=== PATIENT | female | born 1960 | race Caucasian/White ===

== ENCOUNTER 2017-04-28 21:11 | Emergency (ER) | payer MEDICARE ==
[2017-04-28 22:25] LABS: ABS Basophils 0 10^3/ul (0-0.2); ABS Eosinophils 0.2 10^3/ul (0-0.6); ABS Lymphocytes 2.6 10^3/ul (1.0-4.8); ABS Monocytes 0.8 10^3/ul (0-0.8); ABS Neutrophils 4.3 10^3/ul (1.5-7.7); ABS Nucleated RBC 0 10^3/ul; Eosinophil % 2.1 % (0-6); Hematocrit 41 % (35-47); Hemoglobin 13.9 g/dl (12.0-16.0); Lymphocyte % 32.6 % (25-47); Mean Corpuscular HGB Conc 34 g/dl (31-36); Mean Corpuscular Hemoglobin 30 pg (27-31); Mean Corpuscular Volume 90 fL (80-97); Mean Platelet Volume 8.6 um3 (7.4-10.4); Nucleated Red Blood Cells % 0; Platelet Count 227 10^3/ul (150-450); Red Blood Count 4.58 10^6/ul (4.0-5.4); Red Cell Distribution Width 13 % (10.5-15)
[2017-04-28 22:31] LABS: INR 0.88 (0.77-1.02)
[2017-04-28 22:34] LABS: EGFR Non-African American 64.1 (>60)
[2017-04-28 23:22] VITALS: BP 124/69
--- NOTE | 2017-04-28 23:40 | ED ---
Sandy Jensen Rebecca, scribed for Katheryn Montiel MD on 04/28/17 at 2302 . HPI Chest Pain - HPI Summary HPI Summary: Pt is a 57 y/o F who presents to ED c/o intermittent CP for 2-3 weeks. Pain is located in the midsternal chest without radiation and has been gradually worsening since onset. Each episodes lasts about 15 minutes with the pain currently mild, ranked 3/10. Sx alleviated by ASA, which she took at home [employer], aggravated by nothing. Takes 81 mg ASA daily. PMHx CVA in 2005 and STEMI x2, last one on August 11, 2013 when she had 2 stents placed. Last stress test was about 1 year ago and she was planning on scheduling a new one soon. Saw her PCP today who advised a stress test with her prior authorization technician, Dr. Macias. - History of Current Complaint Chief Complaint: EDChestPainROMI Time Seen by Provider: 04/28/17 22:02 Hx Obtained From: Patient Onset/Duration: Started Weeks Ago - 2-3 weeks, Still Present Timing: Intermittent Current Severity: Mild Pain Intensity: 3 Pain Scale Used: 0-10 Numeric Chest Pain Location: Mid Sternal Chest Pain Radiates: No Aggravating Factor(s): Nothing Alleviating Factor(s): OTC Meds - ASA Associated Signs and Symptoms: Positive: Negative - Allergy/Home Medications Allergies/Adverse Reactions: Allergies Allergy/AdvReac Type Severity Reaction Status Date / Time MS Atorvastatin Allergy Unknown Verified 04/28/17 21:32 [From Lipitor] Reaction Details MS Clopidogrel [From Plavix] Allergy Unknown Verified 04/28/17 21:32 Reaction Details MS Ezetimibe [From Vytorin] Allergy Unknown Verified 04/28/17 21:32 Reaction Details MS Iodinated Contrast Media Allergy Hives/Diff. Verified 04/28/17 21:32 [IV CONTRAST DYE] Breathing/I tching MS Latex [Latex] Allergy RASH IF Verified 04/28/17 21:32 TAPE LEFT ON FOR LONG PERIOD OF TIME MS Levetiracetam Allergy Unknown Verified 04/28/17 21:32 [From Keppra] Reaction Details MS Metoprolol Allergy Unknown Verified 04/28/17 21:32 [From Toprol XL] Reaction Details MS Niacin [From Niaspan] Allergy Unknown Verified 04/28/17 21:32 Reaction Details MS Nitroglycerin Allergy Unknown Verified 04/28/17 21:32 [Nitroglycerin] Reaction Details MS Oxcarbazepine Allergy Unknown Verified 04/28/17 21:32 [Oxcarbazepine] Reaction Details MS Phenytoin [From Dilantin] Allergy Unknown Verified 04/28/17 21:32 Reaction Details MS Rosuvastatin Allergy SEVERE Verified 04/28/17 21:32 [From Crestor] UPSET GI MS Simvastatin [From Vytorin] Allergy Unknown Verified 04/28/17 21:32 Reaction Details MS Ticagrelor [Ticagrelor] Allergy Airway Verified 04/28/17 21:32 Obstruction TAPE Allergy Severe Rash Uncoded 04/28/17 21:32 Home Medications: Home Medications Aspirin EC Low Dose* [Ecotrin EC Low Dose 81 MG*] 81 mg PO QAM 04/28/17 [ History Confirmed 04/28/17] Digoxin TAB* [Lanoxin TAB*] 0.25 mg PO DAILY@1700 04/28/17 [History Confirmed ] Ezetimibe TAB* [Zetia TAB*] 10 mg PO QAM 04/28/17 [History Confirmed 04/28/17] Fluvastatin (NF) [Lescol (NF)] 80 mg PO QPM 04/28/17 [History Confirmed 04/28/17 ] Lansoprazole CAP (NF) [Prevacid CAP (NF)] 30 mg PO QAM 04/28/17 [History Confirmed 04/28/17] Metoprolol Succinate XL TAB* [Toprol XL TAB*] 12.5 mg PO QAM 04/28/17 [History Confirmed 04/28/17] [place]-3 Fatty Acids/Fish Oil [[place] 3] 1 cap PO QAM 04/28/17 [History Confirmed 04/28/17] Ranolazine (NF) [Ranexa (NF)] 500 mg PO BID 04/28/17 [History Confirmed 04/28/17 ] Topiramate TAB(*) [Topamax 100 mg tab] 100 mg PO BID 04/28/17 [History Confirmed 04/28/17] Topiramate TAB(*) [Topamax 25 MG tab] 50 mg PO QPM 04/28/17 [History Confirmed 04/28/17] Ubidecarenone [Coq10] 100 mg PO QAM 04/28/17 [History Confirmed 04/28/17] PMH/Surg Hx/FS Hx/Imm Hx Endocrine/Hematology History: Denies: Hx Diabetes, Hx Thyroid Disease Cardiovascular History: Reports: Hx Angina, Hx Coronary Artery Disease, Hx Hypercholesterolemia, Hx Hypotension, Hx Myocardial Infarction, Other Cardiovascular Problems/Disorders - STATES EXTRA BEAT Denies: Hx Hypertension Respiratory History: Denies: Hx Asthma, Hx Chronic Obstructive Pulmonary Disease (COPD) GI History: Reports: Hx Gastroesophageal Reflux Disease - HX OF - NO PROBLEMS AT PRESENT, Other GI Disorders - CONTROL WITH PREVACID Denies: Hx Ulcer Musculoskeletal History: Reports: Hx Arthritis - SHOULDER Sensory History: Reports: Hx Contacts or Glasses - GLASSES, Hx Vision Problem, Hx Hearing Problem - [facility] R ear Denies: Hx Hearing Aid - [facility] RT EAR Opthamlomology History: Reports: Hx Contacts or Glasses - GLASSES, Hx Vision Problem Neurological History: Reports: Hx Headaches - OFF AND ON - TREATS WITH TYLENOL, Hx Seizures - SINCE STROKE LAST 07/2011, Other Neuro Impairments/Disorders - short term memory loss Psychiatric History: Reports: Hx Anxiety - r/t TOPIMAX - Cancer History Hx Radiation Therapy: No - Surgical History Surgery Procedure, Year, and Place: 1975 HERNIA [facility]. 1977 C SECTION [facility]. 1978 C SECTION [facility]. 1981 C SECTION [facility]. 1983 C SECTION [facility]. 2005 2 CARDIAC STENTS [employer]LINE [employer]. 2012 LEFT CARPAL TUNNEL RELEASE, [facility]. 2013-RIGHT CARPAL TUNNEL RELEASE-[facility]. 2013 - Finger surgery (trigger finger) Hx Anesthesia Reactions: No - Immunization History Immunizations Up to Date: Yes Infectious Disease History: No Infectious Disease History: Denies: Hx Hepatitis, Hx Human Immunodeficiency Virus (HIV), Traveled Outside the [place] in Last 30 Days - Family History Known Family History: Positive: Cardiac Disease Negative: Diabetes - Social History Alcohol Use: None Substance Use Type: Reports: None Smoking Status (MU): Former Smoker Type: Cigarettes Amount Used/How Often: 1 PPD X 32 YEARS Review of Systems Negative: Fever Positive: Chest Pain All Other Systems Reviewed And Are Negative: Yes Physical Exam - Summary Physical Exam Summary: VITAL SIGNS: Reviewed. GENERAL: ~Patient is a well-developed and nourished female who is lying comfortable in the stretcher. Patient is not in any acute respiratory distress. HEAD AND FACE: No signs of trauma. No ecchymosis, hematomas or skull depressions. No sinus tenderness. EYES: PERRLA, EOMI x 2, No injected conjunctiva, no nystagmus. EARS: Hearing grossly intact. Ear canals and tympanic membranes are within normal limits. MOUTH: Oropharynx within normal limits. NECK: Supple, trachea is midline, no adenopathy, no JVD, no carotid bruit, no c- spine tenderness, neck with full ROM. CHEST: Symmetric with mild left chest wall tenderness to palpation. LUNGS: Clear to auscultation bilaterally. No wheezing or crackles. CVS: Regular rate and rhythm, S1 and S2 present, no murmurs or gallops appreciated. ABDOMEN: Soft, non-tender. No signs of distention. No rebound no guarding, and no masses palpated. Bowel sounds are normal. EXTREMITIES: FROM in all major joints, no edema, no cyanosis or clubbing. NEURO: Alert and oriented x 3. No acute neurological deficits. Speech is normal and follows commands. SKIN: Dry and warm Triage Information Reviewed: Yes Vital Signs On Initial Exam: Initial Vitals Temp Pulse Resp BP Pulse Ox 97.8 F 67 16 136/86 99 04/28/17 21:12 04/28/17 21:12 04/28/17 21:12 04/28/17 21:12 04/28/17 21:12 Vital Signs Reviewed: Yes Diagnostics - Vital Signs Vital Signs Temp Pulse Resp BP Pulse Ox 04/28/17 22:01 120/76 04/28/17 22:00 60 98 04/28/17 21:40 60 97 04/28/17 21:12 97.8 F 67 16 136/86 99 - Laboratory Lab Results: Lab Results 04/28/17 04/28/17 04/28/17 Range/Units 22:00 22:00 22:00 WBC 8.0 (3.5-10.8) 10^3/ul RBC 4.58 (4.0-5.4) 10^6/ul Hgb 13.9 (12.0-16.0) g/dl Hct 41 (35-47) % MCV 90 (80-97) fL MCH 30 (27-31) pg MCHC 34 (31-36) g/dl RDW 13 (10.5-15) % Plt Count 227 (150-450) 10^3/ul MPV 8.6 (7.4-10.4) um3 Neut % (Auto) 54.4 (38-83) % Lymph % (Auto) 32.6 (25-47) % [place] % (Auto) 10.5 H (0-7) % Eos % (Auto) 2.1 (0-6) % Baso % (Auto) 0.4 (0-2) % Absolute Neuts (auto) 4.3 (1.5-7.7) 10^3/ul Absolute Lymphs (auto) 2.6 (1.0-4.8) 10^3/ul Absolute Monos (auto) 0.8 (0-0.8) 10^3/ul Absolute Eos (auto) 0.2 (0-0.6) 10^3/ul Absolute Basos (auto) 0 (0-0.2) 10^3/ul Absolute Nucleated RBC 0 10^3/ul Nucleated RBC % 0 INR (Anticoag Therapy) 0.88 (0.77-1.02) APTT 28.0 (26.0-36.3) seconds Sodium 139 (133-145) mmol/L Potassium 3.7 (3.5-5.0) mmol/L Chloride 108 (101-111) mmol/L Carbon Dioxide 24 (22-32) mmol/L Anion Gap 7 (2-11) mmol/L BUN 12 (6-24) mg/dL Creatinine 0.90 (0.51-0.95) mg/dL Est GFR ( Amer) 82.4 (>60) Est GFR (Non-Af Amer) 64.1 (>60) BUN/Creatinine Ratio 13.3 (8-20) Glucose 130 H (70-100) mg/dL Lactic Acid (0.5-2.0) mmol/L Calcium 9.1 (8.6-10.3) mg/dL Magnesium 2.1 (1.9-2.7) mg/dL Total Bilirubin 0.30 (0.2-1.0) mg/dL AST 14 (13-39) U/L ALT 17 (7-52) U/L Alkaline Phosphatase 58 (34-104) U/L Troponin I 0.00 (<0.04) ng/mL Total Protein 6.7 (6.4-8.9) g/dL Albumin 4.0 (3.2-5.2) g/dL Globulin 2.7 (2-4) g/dL Albumin/Globulin Ratio 1.5 (1-3) 04/28/17 Range/Units 22:00 WBC (3.5-10.8) 10^3/ul RBC (4.0-5.4) 10^6/ul Hgb (12.0-16.0) g/dl Hct (35-47) % MCV (80-97) fL MCH (27-31) pg MCHC (31-36) g/dl RDW (10.5-15) % Plt Count (150-450) 10^3/ul MPV (7.4-10.4) um3 Neut % (Auto) (38-83) % Lymph % (Auto) (25-47) % [place] % (Auto) (0-7) % Eos % (Auto) (0-6) % Baso % (Auto) (0-2) % Absolute Neuts (auto) (1.5-7.7) 10^3/ul Absolute Lymphs (auto) (1.0-4.8) 10^3/ul Absolute Monos (auto) (0-0.8) 10^3/ul Absolute Eos (auto) (0-0.6) 10^3/ul Absolute Basos (auto) (0-0.2) 10^3/ul Absolute Nucleated RBC 10^3/ul Nucleated RBC % INR (Anticoag Therapy) (0.77-1.02) APTT (26.0-36.3) seconds Sodium (133-145) mmol/L Potassium (3.5-5.0) mmol/L Chloride (101-111) mmol/L Carbon Dioxide (22-32) mmol/L Anion Gap (2-11) mmol/L BUN (6-24) mg/dL Creatinine (0.51-0.95) mg/dL Est GFR ( Amer) (>60) Est GFR (Non-Af Amer) (>60) BUN/Creatinine Ratio (8-20) Glucose (70-100) mg/dL Lactic Acid 1.2 (0.5-2.0) mmol/L Calcium (8.6-10.3) mg/dL Magnesium (1.9-2.7) mg/dL Total Bilirubin (0.2-1.0) mg/dL AST (13-39) U/L ALT (7-52) U/L Alkaline Phosphatase (34-104) U/L Troponin I (<0.04) ng/mL Total Protein (6.4-8.9) g/dL Albumin (3.2-5.2) g/dL Globulin (2-4) g/dL Albumin/Globulin Ratio (1-3) Result Diagrams: 04/28/17 22:00 04/28/17 22:00 Lab Statement: Any lab studies that have been ordered have been reviewed, and results considered in the medical decision making process. - Radiology CXR Xray Interpretation: No Acute Changes - No acute process. Pending official report. Radiology Interpretation Completed By: ED Physician - EKG 2115 Cardiac Rate: Bradycardia - 59 bpm EKG Rhythm: Sinus Bradycardia EKG Interpretation: Subtle ST depression in the inferior lead, unchanged from before EKG Comparison: No Significant Change - Subtle ST depression in the inferior lead, unchanged from before Chest Pain Course/Dx - Course Assessment/Plan: Pt is a 57 y/o F who presents to ED c/o intermittent CP for 2- 3 weeks. Pain is located in the midsternal chest without radiation and has been gradually worsening since onset. Each episodes lasts about 15 minutes with the pain currently mild, ranked 3/10. Sx alleviated by ASA, which she took at home [employer]. Takes 81 mg ASA daily. PMHx CVA in 2005 and STEMI x2, last one on August 11, 2013 when she had 2 stents placed. Last stress test was about 1 year ago and she was planning on scheduling a new one soon. Saw her PCP today who advised a stress test with her prior authorization technician, Dr. Macias. CXR reveals no acute process. EKG shows subtle ST depressions in the inferior leads, unchanged from prior EKG. Troponin of 0.00. Pt will be D/C to home with Dx of atypical chest pain with a recommended followup with her PCP and prior authorization technician. She understands and agrees. Allergies noted. - Diagnoses Provider Diagnoses: Atypical chest pain Discharge - Sign-Out/Discharge Documenting (check all that apply): Discharge - Discharge Plan Condition: Stable Disposition: HOME Patient Education Materials: Chest Pain (ED) Referrals: López Matt MD [Primary Care Provider] - 3 Days Additional Instructions: Follow up with your prior authorization technician. RETURN TO EMERGENCY DEPARTMENT FOR ANY NEW OR WORSENING SYMPTOMS The documentation as recorded by the Sandy mancuso Rebecca accurately reflects the service I personally performed and the decisions made by me, Katheryn Montiel MD.
--- NOTE | 2017-04-29 07:10 | RAD ---
INDICATION: Chest pain. COMPARISON: Comparison is made with a prior study from December 29, 2013. TECHNIQUE: A portable view of the chest was obtained. FINDINGS: Cardiac and mediastinal contours appear to be within normal limits. The lungs are clear. No pleural effusion is seen. IMPRESSION: NO EVIDENCE FOR ACUTE DISEASE.
== END 2017-04-28 23:33 | disposition home or self-care (01) ==
LOC: ED 21:11
DX: R07.89 Other chest pain (principal); R00.1 Bradycardia, unspecified; I25.119 Atherosclerotic heart disease of native coronary artery with unspecified angina pectoris; E78.00 Pure hypercholesterolemia, unspecified; Z79.82 Long term (current) use of aspirin; I95.9 Hypotension, unspecified; I25.2 Old myocardial infarction; K21.9 Gastro-esophageal reflux disease without esophagitis; F41.9 Anxiety disorder, unspecified; Z91.041 Radiographic dye allergy status; Z91.040 Latex allergy status; Z88.8 Allergy status to other drugs, medicaments and biological substances; Z91.048 Other nonmedicinal substance allergy status; Z87.891 Personal history of nicotine dependence
CPT/HCPCS: 36415; 71045; 80053; 83605; 83735; 84484; 85025; 85610; 85730; 93005; 99284

== ENCOUNTER 2018-02-12 11:13 | Emergency (ER) | payer MEDICARE ==
--- OUTSIDE RECORDS SUMMARY | 2018-02-12 11:19 | XMS REPORT | Continuity of Care Document ---
:1960 External Reference #:[id number] Author Name Maya Lester Care Team Providers Name Role Phone López Matt MD Primary Care Physician Unavailable Payers Type Date Identification Numbers Payment Provider Subscriber Effective: 2013 Policy Number: [id number] Medicare Blue Ppo Ludy Benedict Group Number: [id number] [address] [address] PayID: [id number] BL[place] [address] Effective: 2012 Policy Number: [id number] Medicare Blue o Ludy Benedict Expires: 2013 PayID: [id number] [address] [address] [place] [address] Effective: 2011 Policy Number: [id number] Medicare Blue [place] Ludy Benedict Expires: 2012 PayID: [id number] [address] [address] [place] [id number] Advance Directives Description No Information Available Problems Date Description Provider Status Onset: 03/10/2013 Coronary arteriosclerosis Heather Macias M.D. Active Onset: 03/10/2013 Mixed hyperlipidemia Heather Macias M.D. Active Onset: 04/27/2014 Carotid artery occlusion Heather Macias M.D. Active Onset: 08/07/2014 Old myocardial infarction Heather Macias M.D. Active Onset: 03/22/2015 Premature beats Heather Macias M.D. Active Onset: 07/23/2015 Atherosclerotic heart disease of samish Heather Macias M.D. Active coronary artery with unspecified angina pectoris Family History Date Family Member(s) Problem(s) Comments General Diabetes General Heart Disease General Cancer Mother Coronary Artery Disease (CAD) CT in 70s, Maternal Grandfather Coronary Artery Disease (CAD) multiple CT's, 95 yo Maternal Grandmother Coronary Artery Disease (CAD) Multiple CT's Social History Type Date Description Comments Sex Unknown Marital Status Single Lives With Boyfriend Occupation Disabled Tobacco Use Start: Unknown End: Former Cigarette Smoker Quit 2005 Unknown ETOH Use Denies alcohol use Recreational Drug Use Denies Drug Use Tobacco Use Start: Unknown End: Patient is a former Quit 2005 Unknown smoker Tobacco Use Start: Unknown End: former Cigarette smoker Unknown Smoking Status Reviewed: 01/18/18 former Cigarette smoker Exercise Type/Frequency Exercises regularly 3-4 times a week about half hour Allergies, Adverse Reactions, Alerts Date Description Reaction Status Severity Comments 03/10/2013 Crestor GERD Active 03/10/2013 Nitroglycerin low BP, itching Active 03/10/2013 Latex rash/hives Active 03/10/2013 Dye For Heart Catheterization Active 03/10/2013 Toprol XL fatigue/ OLIVO Active 03/10/2013 Niaspan GI Active 03/10/2013 Oxcarbazepine seizures Active 03/10/2013 Keppra headaches Active 03/10/2013 Dilantin rash Active 03/10/2013 Plavix headache Active 03/10/2013 Vytorin myalgias Active 03/10/2013 Lipitor myalgias Active 08/07/2014 Aspartame Active cognative 08/07/2014 Lactose (Intolerance) Active reflux/CP 02/02/2013 NKDA Inactive 03/10/2013 Benadryl Inactive Medications Medication Date Status Form Strength Qnty SIG Indications Ordering Provider Topiramate 07/16 Active Tablets 100mg 270ta 1 po qam and G40.209 Venkatesh S. /2018 bs 2 [facility] Yolanda Bonilla Lescol XL 12/01 Active Tablets ER 80mg 90tab 1 tab daily Heather 24HR s at bedtime Yolanda Macias Digoxin 02/13 Active Tablets 250mcg 90tab 1 by mouth s everyday Yolanda Macias Metoprolol 09/04 Active Tablets ER 25mg 90tab /2 tab by I21.4 Heather Succinate /2013 24HR s mouth every Easley, day M.DJayne Aspirin Active Tablets 81mg 1 po qd Unknown [place] 3 Active Capsules 1000mg 100ca 1 po qd. ps Co-Enzyme Q10 Active Capsules 100mg po qd Lansoprazole Active Capsules DR 30mg 90cap 1 by mouth Unknown s every day Zetia Active Tablets 10mg 90tab 1 by mouth Heather s every day Yolanda Macias Potassium 06/11 Hx Tablets ER 20Meq 90tab 1 by mouth I49.3 Amarilis S. Chloride ER /2017 s every day Brant, - N.P. 08/05 Topiramate 04/09 Hx Tablets 50mg 90tab 100mg in the G40.209 Venkatesh S. /2015 s morning and Irene, - 150mg at M.D. 07/16 /2017 Sucralfate 11/17 Hx Suspension 1GM/10ML 1200m 10 mls qid Heather l with meals Gilberto, - and qhs M.D. 04/27 Ranexa 10/11 Hx Tablets ER 500mg 60tab 1 by mouth I20.8 Heather 12HR s once a day Gilberto, - in in the M.D. 06/11 Welchol 10/11 Hx Tablets 625mg 180ta 1 pill PO 272.2 Heather bs bid and Gilberto, - increase as M.D. 03/01 directed by /2014 md office. Brilinta 08/23 Hx Tablets 90mg 60tab 1 tab by 410.72 Heather s mouth twice Gilberto, - a day M.D. 08/07 Compression 08/23 Hx Misc 1unit Thigh high Heather Stockings s light to Easley, - moderate M.D. 11/08 compression. Dx: hypotension, headache, orthostatic dizzyness. Post CT and post CVA Plavix 08/14 Hx Tablets 75mg 30tab 1 by mouth 410.72 Chris D. /2013 s every day Brand, - M.D. 08/23 [place] 05/29 Hx Tablets 5-325mg 30tab 1-2 by mouth Yadira s q4-6 hour as Bola, - needed pain M.D. 08/22 [place] 06/22 Hx Tablets 5-325mg 30tab 1-2 po q4-6h Yadira s prn Rosalino Ann M.D. 02/23 Digoxin 06/01 Hx Tablets 0.25mg 90tab 1 po qd Rosalino Salazar M.D. 02/13 Topamax 04/29 Hx Tablets 100mg 180ta 1 by mouth Venkatesh Jayne /2012 libertad twice a day Rosalion Bonilla M.D. 06/10 Crestor 04/27 Hx Tablets 5mg 30tab take 02/09 s tablet by Gilberto - mouth twice M.DJayne 03/02 per /2013 Prevacid 03/[address] 15mg 90cap 2 po qd Rosalino Santos M.D. 05/29 Topamax 03/16 Hx Tablets 25mg 240ta 1 mg bid for bs 1 wk then 2 Irene, - bid for 1 wk M.DJayne 04/29 then 3 bid for 1 wk then 4 bid Lamotrigine 11/16 Hx Tablets 150mg 60tab 1 q evening Venkatesh Jayne Rosalino Santos M.D. 03/16 Lamotrigine Hx Tablets 100mg 120ta 1 po qam Venkatesh S Rosalino Elena M.D. 03/02 Digoxin Hx Solution 0.25mg/ml daily Unknown /0000 - 06/01 Ciprofloxacin Hx Tablets 500mg 1 po bid for Unknown HCL /0000 UTI - 10/09 Lescol Hx Capsules 80mg 90cap 1 tab daily Heather s at bedtime Rosalino Macias M.D. 12/01 Topiramate Hx Tablets 100mg 1 by mouth Unknown /0000 in the Am - and one by 07/21 mouth in the PM Ranexa Hx Tablets ER 500mg 1 by mouth Unknown /0000 12HR twice a day - 06/27 Medications Administered in Office Medication Date Status Form Strength Qnty SIG Indications Ordering Provider Inj, Administered Injection Cem S. Regadenoson, 018 Pereyra, DO 0.1 MG FACC Technetium TC Administered Injection Cem S. 99M 018 Pereyra, DO Tetrofosmin, FACC Per Unit Dose Up To 40 Millicuries Depomedrol Administered Injection Yadira 80MG [address] Technetium TC Administered Injection Heather 99M 013 Mariya Macias M.D. Per Unit Dose Up To 40 Millicuries Immunizations Description No Information Available Vital Signs Date Vital Result Comment 01/18/2018 10:34am Height 58.25 inches 4'10.25" Weight 122.00 lb Heart Rate 60 /min BP Systolic 100 mmHg BP Diastolic 78 mmHg BMI (Body Mass Index) 25.3 kg/m2 12/24/2017 2:01pm Height 58.25 inches 4'10.25" Weight 124.00 lb w/o shoes Heart Rate 62 /min reg BP Systolic Sitting 105 mmHg LA reg cuff BP Diastolic Sitting 55 mmHg LA reg cuff BP Systolic Standing 110 mmHg LA reg cuff BP Diastolic Standing 60 mmHg LA reg cuff Respiratory Rate 18 /min BMI (Body Mass Index) 25.7 kg/m2 08/05/2017 8:18am Height 58.25 inches 4'10.25" Weight 120.00 lb Heart Rate 60 /min BP Systolic Sitting 108 mmHg Lenora reg cuff BP Diastolic Sitting 58 mmHg Lenora reg cuff BP Systolic Standing 108 mmHg Lenora reg cuff BP Diastolic Standing 56 mmHg Lenora reg cuff Respiratory Rate 18 /min BMI (Body Mass Index) 24.9 kg/m2 07/16/2017 9:49am Height 58.25 inches '10.25" Weight 120.00 lb Heart Rate 62 /min BP Systolic Sitting 118 mmHg BP Diastolic Sitting 72 mmHg Respiratory Rate 16 /min BMI (Body Mass Index) 24.9 kg/m2 06/11/2017 11:12am Height 58.25 inches 4'10.25" Weight 124.00 lb BP Systolic Sitting 110 mmHg lue reg cuff BP Diastolic Sitting 48 mmHg lue reg cuff BP Systolic Standing 108 mmHg lue reg cuff BP Diastolic Standing 50 mmHg lue reg cuff Respiratory Rate 16 /min BMI (Body Mass Index) 25.7 kg/m2 Ejection Fraction 45-50% 09/06/2013 echo 12/08/2016 9:29am Height 58.25 inches 4'10.25" Weight 122.00 lb with shoes Heart Rate 50 /min BP Systolic Sitting 110 mmHg Lue reg cuff BP Diastolic Sitting 70 mmHg Lue reg cuff BP Systolic Standing 112 mmHg Lue reg cuff BP Diastolic Standing 72 mmHg Lue reg cuff Respiratory Rate 16 /min BMI (Body Mass Index) 25.3 kg/m2 Ejection Fraction 45-50% 09/06/2013-echo 07/15/2016 10:06am Height 58.25 inches 4'10.25" Weight 120.00 lb Heart Rate 68 /min BP Systolic Sitting 106 mmHg BP Diastolic Sitting 68 mmHg Respiratory Rate 14 /min BMI (Body Mass Index) 24.9 kg/m2 12/17/2015 3:35pm Height 58.25 inches 4'10.25" Weight 122.00 lb Heart Rate 56 /min BP Systolic Sitting 118 mmHg Ra reg cuff BP Diastolic Sitting 70 mmHg Ra reg cuff BP Systolic Standing 112 mmHg Ra BP Diastolic Standing 66 mmHg Ra Respiratory Rate 16 /min BMI (Body Mass Index) 25.3 kg/m2 Ejection Fraction 45-50% 09/06/13 09/27/2015 9:00am Height 58.25 inches 4'10.25" Weight 120.31 lb no shoes Heart Rate 58 /min BP Systolic Sitting 114 mmHg LA, reg cuff BP Diastolic Sitting 66 mmHg LA, reg cuff BP Systolic Standing 108 mmHg LA BP Diastolic Standing 62 mmHg LA Respiratory Rate 14 /min BMI (Body Mass Index) 24.9 kg/m2 Ejection Fraction 45-50% 09/06/13 08/27/2015 9:24am Height 58.25 inches 4'10.25" Weight 123.00 lb with shoes Heart Rate 54 /min BP Systolic Sitting 110 mmHg Ra reg cuff BP Diastolic Sitting 70 mmHg Ra reg cuff BP Systolic Standing 114 mmHg Ra reg cuff BP Diastolic Standing 80 mmHg Ra reg cuff BMI (Body Mass Index) 25.5 kg/m2 Ejection Fraction 45% - 50% echo 09/06/13 07/23/2015 8:48am Height 58.25 inches 4'10.25" Weight 121.00 lb with shoes Heart Rate 62 /min BP Systolic Sitting 98 mmHg LA reg cuff BP Diastolic Sitting 58 mmHg LA reg cuff BP Systolic Standing 96 mmHg LA reg cuff BP Diastolic Standing 56 mmHg LA reg cuff Respiratory Rate 14 /min BMI (Body Mass Index) 25.1 kg/m2 Ejection Fraction 45-50% 09/06/13 04/10/2015 9:46am Height 58.25 inches 4'10.25" Weight 117.00 lb Heart Rate 68 /min BP Systolic Sitting 116 mmHg BP Diastolic Sitting 68 mmHg Respiratory Rate 14 /min BMI (Body Mass Index) 24.2 kg/m2 03/22/2015 9:02am Height 58.25 inches 4'10.25" Weight 117.50 lb w/o shoes Heart Rate 48 /min BP Systolic Sitting 110 mmHg Lue, reg cuff BP Diastolic Sitting 84 mmHg Lue, reg cuff BP Systolic Standing 106 mmHg Lue BP Diastolic Standing 80 mmHg Lue Respiratory Rate 16 /min BMI (Body Mass Index) 24.3 kg/m2 Ejection Fraction 45-50% as of 09/06/13 echo 08/07/2014 9:29am Height 58.25 inches 4'10.25" Weight 111.00 lb w/o shoes Heart Rate 54 /min reg BP Systolic Sitting 104 mmHg Rue, reg cuff BP Diastolic Sitting 64 mmHg Rue, reg cuff BP Systolic Standing 100 mmHg Rue BP Diastolic Standing 60 mmHg Rue Respiratory Rate 18 /min BMI (Body Mass Index) 23.0 kg/m2 Ejection Fraction 45-50% as of 09/06/13 echo 05/02/2014 9:52am Height 58.25 inches 4'10.25" Heart Rate 56 /min BP Systolic Sitting 104 mmHg BP Diastolic Sitting 64 mmHg Respiratory Rate 16 /min 04/27/2014 9:25am Height 58.25 inches 4'10.25" Weight 118.00 lb no shoes Heart Rate 64 /min BP Systolic Sitting 108 mmHg LA, reg cuff BP Diastolic Sitting 60 mmHg LA, reg cuff BP Systolic Standing 112 mmHg LA BP Diastolic Standing 70 mmHg LA Respiratory Rate 18 /min BMI (Body Mass Index) 24.4 kg/m2 03/02/2014 9:24am Weight 121.00 lb no shoes Heart Rate 60 /min BP Systolic Sitting 108 mmHg LA, reg cuff BP Diastolic Sitting 72 mmHg LA, reg cuff BP Systolic Standing 102 mmHg LA BP Diastolic Standing 74 mmHg LA Respiratory Rate 14 /min 11/10/2013 2:23pm Weight 122.00 lb Heart Rate 60 /min BP Systolic Sitting 98 mmHg LA reg cuff BP Diastolic Sitting 64 mmHg LA reg cuff BP Systolic Standing 94 mmHg LA BP Diastolic Standing 64 mmHg LA Respiratory Rate 16 /min 10/11/2013 10:22am Weight 122.00 lb Heart Rate 62 /min BP Systolic Sitting 112 mmHg LA reg cuff BP Diastolic Sitting 68 mmHg LA reg cuff BP Systolic Standing 94 mmHg LA BP Diastolic Standing 64 mmHg LA Respiratory Rate 16 /min 09/08/2013 9:08am Height 58.5 inches 4'10.50" Weight 125.00 lb Heart Rate 64 /min BP Systolic Sitting 100 mmHg Ra reg cuff BP Diastolic Sitting 68 mmHg Ra reg cuff BP Systolic Standing 92 mmHg Ra BP Diastolic Standing 60 mmHg Ra Respiratory Rate 16 /min BMI (Body Mass Index) 25.7 kg/m2 08/23/2013 3:26pm Height 59 inches 4'11" Weight 125.00 lb with shoes Heart Rate 70 /min BP Systolic Sitting 90 mmHg Ra reg cuff BP Diastolic Sitting 60 mmHg Ra reg cuff BP Systolic Standing 86 mmHg Ra reg cuff BP Diastolic Standing 54 mmHg Ra reg cuff Respiratory Rate 16 /min BMI (Body Mass Index) 25.2 kg/m2 07/17/2013 9:30am Heart Rate 78 /min BP Systolic Sitting 124 mmHg BP Diastolic Sitting 80 mmHg 06/12/2013 9:17am Heart Rate 62 /min BP Systolic Sitting 120 mmHg BP Diastolic Sitting 74 mmHg 05/29/2013 9:13am Height 59 inches 4'11" Weight 125.00 lb BP Systolic Sitting 120 mmHg BP Diastolic Sitting 60 mmHg BMI (Body Mass Index) 25.2 kg/m2 04/19/2013 8:14am Heart Rate 80 /min BP Systolic Sitting 120 mmHg BP Diastolic Sitting 80 mmHg 03/10/2013 9:15am Height 58.5 inches 4'10.50" Weight 128.00 lb Heart Rate 60 /min BP Systolic Sitting 108 mmHg Ra reg cuff BP Diastolic Sitting 64 mmHg Ra reg cuff BP Systolic Standing 110 mmHg Ra BP Diastolic Standing 64 mmHg Ra Respiratory Rate 15 /min BMI (Body Mass Index) 26.3 kg/m2 03/16/2012 2:01pm Heart Rate 60 /min BP Systolic Sitting 136 mmHg BP Diastolic Sitting 68 mmHg Respiratory Rate 16 /min Results Test Date Facility Test Result H/L Range Note Lipid Profile 12/27/2017 [facility] Triglycerides 141 mg/dL 1 (Trig/Chol/HDL) [address] [place] [address] [phone] Cholesterol 161 mg/dL 2 HDL Cholesterol 41.2 mg/dL 3 LDL Cholesterol 92 mg/dL 4 Comp Metabolic Panel 12/27/2017 [facility] Sodium 142 mmol/L N 135-[address] [place] [address] [phone] Potassium 4.0 mmol/L N 3.5-5.0 Chloride 111 mmol/L N 101-111 Co2 Carbon Dioxide 25 mmol/L N 22-32 Anion Gap 6 mmol/L N 2-11 Glucose 139 mg/dL High 70-100 Blood Urea Nitrogen 13 mg/dL N 6-24 Creatinine 0.82 mg/dL N 0.51-0.95 BUN/Creatinine Ratio 15.9 N 8-20 Calcium 9.1 mg/dL N 8.6-10.3 Total Protein 6.4 g/dL N 6.4-8.9 Albumin 4.0 g/dL N 3.2-5.2 Globulin 2.4 g/dL N 2-4 Albumin/Globulin Ratio 1.7 N 1-3 Total Bilirubin 0.30 mg/dL N 0.2-1.0 Alkaline Phosphatase 68 U/L N 34-104 Alt 16 U/L N 7-52 Ast 14 U/L N 13-39 Egfr Non- 71.4 >60 Egfr 86.3 >60 5 Laboratory test 12/27/2017 [facility] Creatine 72 U/L N 10- [address] Kinase(CK) [place] [address] [phone] Digoxin 1.1 ng/ml N 0.8-2.0 Basic Metabolic Panel 08/19/2017 [facility] Sodium 141 mmol/L N 135-145 [address] [place] [address] [phone] Potassium 4.0 mmol/L N 3.5-5.0 Chloride 109 mmol/L N 101-111 Co2 Carbon Dioxide 24 mmol/L N 22-32 Anion Gap 8 mmol/L N 2-11 Glucose 130 mg/dL High 70-100 Blood Urea Nitrogen 8 mg/dL N 6-24 Creatinine 0.75 mg/dL N 0.51-0.95 BUN/Creatinine Ratio 10.7 N 8-20 Calcium 8.7 mg/dL N 8.6-10.3 Egfr Non- 79.1 >60 Egfr 95.7 >60 6 Laboratory test 08/19/2017 [facility] Magnesium 2.0 mg/dL N 1.9-2.7 finding [address] [place] [address] [phone] Digoxin 0.8 ng/ml N 0.8-2.0 Laboratory test finding 08/05/2017 [facility] Magnesium <pending > [address] [place] [address] [phone] Digoxin <pending> Basic Metabolic Panel 06/28/2017 [facility] Sodium 140 mmol/L N 139-145 [address] [place] [address] [phone] Potassium 4.2 mmol/L N 3.5-5.0 Chloride 107 mmol/L N 101-111 Co2 Carbon Dioxide 26 mmol/L N 22-32 Anion Gap 7 mmol/L N 2-11 Glucose 137 mg/dL High 70-100 Blood Urea Nitrogen 11 mg/dL N 6-24 Creatinine 0.78 mg/dL N 0.51-0.95 BUN/Creatinine Ratio 14.1 N 8-20 Calcium 9.2 mg/dL N 8.6-10.3 Egfr Non- 75.6 >60 Egfr 97.2 >60 7 Laboratory test 06/28/2017 [facility] Magnesium 2.1 mg/dL N 1.9-2.7 finding [address] [place] [address] [phone] Laboratory test 06/11/2017 [facility] Magnesium <pending> finding [address] [place] [address] [phone] Lipid Profile 12/07/2016 [facility] Triglycerides 158 mg/dL N 8 (Trig/Chol/HDL) [address] [place] [address] [phone] Cholesterol 147 mg/dL N 9 HDL Cholesterol 43.3 mg/dL N 10 LDL Cholesterol 72 mg/dL N 11 Laboratory test 12/07/2016 [facility] Apolipoprotein B 77 mg/dL N 12 finding [address] [place] [address] [phone] Lipoprotein 12/07/2016 [facility] Lipoprotein 97 mg/dL Abnormal <=3 13 Profile/[address] Profile Apo a 0 Lp([place]) [place] [address] [phone] CBC Auto Diff 07/13/2016 [facility] White Blood Count 7.5 N 3.[address] 10^3/uL -10 [place] [address] .8 [phone] Red Blood Count 4.59 10^6/uL N 4.0-5.4 Hemoglobin 13.8 g/dL N 12.0-16.0 Hematocrit 41 % N 35-47 Mean Corpuscular Volume 90 fL N 80-97 Mean Corpuscular Hemoglobin 30 pg N 27-31 Mean Corpuscular HGB Conc 33 g/dL N 31-36 Red Cell Distribution Width 13 % N 10.5-15 Platelet Count 202 10^3/uL N 150-450 Mean Platelet Volume 10 um3 N 7.4-10.4 Abs Neutrophils 4.4 10^3/uL N 1.5-7.7 Abs Lymphocytes 2.3 10^3/uL N 1.0-4.8 Abs Monocytes 0.6 10^3/uL N 0-0.8 Abs Eosinophils 0.2 10^3/uL N 0-0.6 Abs Basophils 0.1 10^3/uL N 0-0.2 Abs Nucleated RBC 0 10^3/uL N Granulocyte % 57.9 % N 38-83 Lymphocyte % 31.1 % N 25-47 Monocyte % 8.1 % N 1-9 Eosinophil % 2.1 % N 0-6 Basophil % 0.8 % N 0-2 Nucleated Red Blood Cells % 0 N Basic Metabolic Panel 07/13/2016 [facility] Sodium 140 mmol/L N 133-[address] [place] [address] [phone] Potassium 4.2 mmol/L N 3.5-5.0 Chloride 111 mmol/L N 101-111 Co2 Carbon Dioxide 24 mmol/L N 22-32 Anion Gap 5 mmol/L N 2-11 Glucose 121 mg/dL High 70-100 Blood Urea Nitrogen 13 mg/dL N 6-24 Creatinine 0.88 mg/dL N 0.51-0.95 BUN/Creatinine Ratio 14.8 N 8-20 Calcium 8.7 mg/dL N 8.6-10.3 Egfr Non- 66.0 N >60 Egfr 84.9 N >60 14 Lipid Profile 07/13/2016 [facility] Triglycerides 139 mg/dL N 15 (Trig/Chol/HDL) [address] [place] [address] [phone] Cholesterol 135 mg/dL N 16 HDL Cholesterol 32.8 mg/dL N 17 LDL Cholesterol 74 mg/dL N 18 Liver Function 07/13/2016 [facility] Total Protein 6.0 g/dL Low 6.4-8.[address] [place] [address] [phone] Albumin 3.9 g/dL N 3.2-5.2 Globulin 2.1 g/dL N 2-4 Albumin/Globulin Ratio 1.9 N 1-3 Total Bilirubin 0.60 mg/dL N 0.2-1.0 Direct Bilirubin 0.10 mg/dL N 0.03-0.18 Indirect Bilirubin 0.5 mg/dL N 0.3-1.0 Alkaline Phosphatase 52 U/L N 34-104 Alt 12 U/L N 7-52 Ast 12 U/L Low 13-39 Laboratory test finding 07/02/2015 [facility] Ast (Sgot) 13 U/L N 13-39 [place] [address] [phone] CRP High Sensitivity 1.00 mg/L N 19 Creatine Kinase(CK) 52 U/L N 10-223 Lipoprotein 07/02/2015 [facility] Lipoprotein 88 mg/dL Abnormal <=30 20 Profile/[place] Profile Apo a [place]p([place]) [place] [address] [phone] Lipid Profile 07/02/2015 [facility] Triglycerides [address] 21 (Trig/Chol/HDL) DRIVE mg/[place] [address] [phone] Cholesterol 142 mg/dL N 22 HDL Cholesterol 37.7 mg/dL N 23 LDL Cholesterol 71 mg/dL N 24 Laboratory 07/02/2015 [facility] Digoxin 1.4 ng/ml N 0.8-2.0 [address] [place] [address] [phone] Laboratory 07/02/2015 [facility] Digoxin 1.4 ng/ml N 0.8-2.[address] [place] [address] [phone] Lipoprotein 07/02/2015 [facility] Lipoprotein 88 mg/dL Abnormal <=30 27 Profile/[place] [address] Profile Apo a [place]p([place]) [place] [address] [phone] Laboratory 04/30/2014 [facility] LDL 194 mg/dL N 28 test finding 101 [facility] [place] [address] Direct [phone] Urinalysis 08/29/2013 [facility] Urine Color Yellow N Profile [address] [place] [address] [phone] Urine Appearance Cloudy N Urine Specific [place] 1.006 Low 1.010-1.030 Urine pH 7.0 N 5-9 Urine Urobilinogen Negative N Negative Urine Ketones Negative N Negative Urine Protein Negative N Negative Urine Leukocytes 3+ Abnormal Negative Urine Blood 2+ Abnormal Negative Urine Nitrite Negative N Negative Urine Bilirubin Negative N Negative Urine Glucose Negative N Negative Urine White Blood Cell 3+(>20/hpf) Abnormal Absent Urine Red Blood Cell 2+(6-10/hpf) Abnormal Absent Urine Bacteria 1+ Abnormal Absent Urine Squamous Epithelial Cell Present Abnormal Absent Urine Culture And 08/29/2013 [facility] Urine Culture (SEE NOTE ) [address] [place], [place] [id number] [phone] CBC Auto Diff 08/11/2013 [facility] White Blood 9.0 10^3/uL N 4.8-[address] Count .8 [place] [address] [phone] Red Blood Count 4.39 10^6/uL N 4.0-5.4 Hemoglobin 13.6 g/dL N 12.0-16.0 Hematocrit 39 % N 35-47 Mean Corpuscular Volume 89 fL N 80-97 Mean Corpuscular Hemoglobin 31 pg N 27-31 Mean Corpuscular HGB Conc 35 g/dL N 31-36 Red Cell Distribution Width 13 % N 10.5-15 Platelet Count 240 10^3/uL N 150-450 Mean Platelet Volume 9 um3 N 7.4-10.4 Abs Neutrophils 4.8 10^3/uL N 1.5-7.7 Abs Lymphocytes 3.2 10^3/uL N 1.0-4.8 Abs Monocytes 0.7 10^3/uL N 0-0.8 Abs Eosinophils 0.2 10^3/uL N 0-0.6 Abs Basophils 0.1 10^3/uL N 0-0.2 Abs Nucleated RBC 0.01 10^3/uL N Granulocyte % 53.4 % N 38-83 Lymphocyte % 36.0 % N 25-47 Monocyte % 7.6 % N 1-9 Eosinophil % 2.3 % N 0-6 Basophil % 0.7 % N 0-2 Nucleated Red Blood Cells % 0.1 N Inr/Protime 08/11/2013 [facility] Inr 0.95 N 0.85-1.[address] [place] [address] [phone] Laboratory test 08/11/2013 [facility] Activated 27.0 N 24.0- 36.[address] [place] [address] Thrombo Time [phone] B Type Natriuretic Peptide 23 pg/mL N 30 Comp Metabolic Panel 08/11/2013 [facility] Sodium 138 mmol/L N 133-145 [address] [place] [address] [phone] Potassium 3.9 mmol/L N 3.7-5.6 Chloride 106 mmol/L N 101-111 Co2 Carbon Dioxide 25 mmol/L N 22-32 Anion Gap 7 mmol/L N 2-11 Glucose 134 mg/dL High 70-100 Blood Urea Nitrogen 12 mg/dL N 6-24 Creatinine 0.90 mg/dL N 0.51-0.95 BUN/Creatinine Ratio 13.3 N 8-20 Calcium 9.0 mg/dL N 8.6-10.3 Total Protein 6.6 g/dL N 6.4-8.9 Albumin 4.0 g/dL N 3.2-5.2 Globulin 2.6 g/dL N 2-4 Albumin/Globulin Ratio 1.5 N 1-3 Total Bilirubin 0.30 mg/dL N 0.2-1.0 Alkaline Phosphatase 58 U/L N 34-104 Alt 12 U/L N 7-52 Ast 11 U/L Low 13-39 Egfr Non- 65.0 N >60 Egfr 83.6 N >60 31 Laboratory test 08/11/2013 [facility] Magnesium 2.1 mg/dL N 1.9-2.[address] [place] [address] [phone] CKMB 08/11/2013 [facility] CKMB ng/mL 1.2 ng/mL N 0.6-6.3 [address] [place] [address] [phone] Laboratory test 08/11/2013 [facility] Troponin I 0.03 ng/mL N <0.03 32 finding [address] [place] [address] [phone] Digoxin 1.2 ng/ml N 0.8-2.0 Basic Metabolic Panel 04/17/2013 [facility] Sodium 139 mmol/L 133-145 [address] [place] [address] [phone] Potassium 4.0 mmol/L 3.7-5.6 Chloride 110 mmol/L 101-111 Co2 Carbon Dioxide 25 mmol/L 22-32 Anion Gap 4 mmol/L 2-11 Glucose 111 mg/dL High 70-100 Blood Urea Nitrogen 10 mg/dL 6-24 Creatinine 0.88 mg/dL 0.51-0.95 BUN/Creatinine Ratio 11.4 8-20 Calcium 8.9 mg/dL 8.6-10.3 Egfr Non- 66.7 >60 Egfr 85.8 >60 33 Lipid Profile 04/17/2013 [facility] Triglycerides 177 mg/dL 34 (Trig/Chol/HDL) [address] [place] [address] [phone] Cholesterol 210 mg/dL 35 HDL Cholesterol 32.8 mg/dL 36 LDL Cholesterol 142 mg/dL 37 Laboratory 04/17/2013 [facility] Hepatitis C Nonreactive Nonreactive 38 test finding [address] [facility] [place] [address] [phone] Laboratory 04/17/2013 [facility] Digoxin 0.9 ng/ml 0.8-2.0 39 test finding [address] [place] [phone] Comp Metabolic 03/14/2012 [facility] Sodium 137 mmol/L 133- 145 Panel [address] [place] [address] [phone] Potassium 4.3 mmol/L 3.5-5.0 Chloride 104 mmol/L 101-111 Co2 Carbon Dioxide 28.0 mmol/L 22-32 Anion Gap 5.0 mmol/L 2-11 Glucose 125 mg/dL High 70-100 Blood Urea Nitrogen 11 mg/dL 6-24 Creatinine 0.90 mg/dL 0.50-1.40 BUN/Creatinine Ratio 12.2 8-20 Calcium 9.1 mg/dL 8.1-9.9 Total Protein 5.8 g/dL Low 6.2-8.1 Albumin 3.8 g/dL 3.6-5.4 Globulin 2.0 g/dL 2-4 Albumin/Globulin Ratio 1.9 1-3 Total Bilirubin 0.6 mg/dL 0.4-1.5 Alkaline Phosphatase 53 U/L 30-110 Alt 23 U/L 14-54 Ast 18 U/L 12-42 Egfr Non- 65.5 >60 Egfr 84.2 >60 40 Lipid Profile 03/14/2012 [facility] Triglycerides 150 mg/dL 40-200 (Trig/Chol/HDL) [address] [place] [address] [phone] Cholesterol 268 mg/dL High Less than 200 HDL Cholesterol 36 mg/dL Low 40-60 41 Cholesterol/HDL Ratio 7.4 Average High 1-4.44 LDL Cholesterol 202.0 mg/dL High Less Than 100 42 Laboratory test 03/14/2012 [facility] Creatine 77 U/L 0-200 43 finding 101 DATES [facility] [place] [place] [address] [phone] Laboratory test 03/14/2012 [facility] Digoxin 0.6 ng/mL 0.5- 1.5 44 finding 101 [place] [address] [phone] 1 Desirable: <150 Borderline High: 150-199 High: 200-499 Very High: >500 2 Desirable: <200 Borderline High: 200-239 High: >239 3 Low: <40 Desirable: 40-60 High: >60 4 Desirable: <100 Near Optimal: 100-129 Borderline High: 130-159 High: 160-189 Very High: >189 5 Because ethnic data is not always readily available, this report includes an eGFR for both -Americans and non- Americans. The National Kidney Disease Education Program (NKDEP) does not endorse the use of the MDRD equation for patients that are not between the ages of 18 and 70, are , have extremes of body size, muscle mass, or nutritional status, or are non- or non-. According to the National Kidney Foundation, irrespective of diagnosis, the stage of the disease is based on the level of kidney function: Stage Description GFR(mL/min/1.73 m(2)) 1 Kidney damage with normal or decreased GFR 90 2 Kidney damage with mild decrease in GFR 60-89 3 Moderate decrease in GFR 30-59 4 Severe decrease in GFR 15-29 5 Kidney failure <15 (or dialysis) 6 Because ethnic data is not always readily available, this report includes an eGFR for both -Americans and non- Americans. The National Kidney Disease Education Program (NKDEP) does not endorse the use of the MDRD equation for patients that are not between the ages of 18 and 70, are , have extremes of body size, muscle mass, or nutritional status, or are non- or non-. According to the National Kidney Foundation, irrespective of diagnosis, the stage of the disease is based on the level of kidney function: Stage Description GFR(mL/min/1.73 m(2)) 1 Kidney damage with normal or decreased GFR 90 2 Kidney damage with mild decrease in GFR 60-89 3 Moderate decrease in GFR 30-59 4 Severe decrease in GFR 15-29 5 Kidney failure <15 (or dialysis) 7 Because ethnic data is not always readily available, this report includes an eGFR for both -Americans and non- Americans. The National Kidney Disease Education Program (NKDEP) does not endorse the use of the MDRD equation for patients that are not between the ages of 18 and 70, are , have extremes of body size, muscle mass, or nutritional status, or are non- or non-. According to the National Kidney Foundation, irrespective of diagnosis, the stage of the disease is based on the level of kidney function: Stage Description GFR(mL/min/1.73 m(2)) 1 Kidney damage with normal or decreased GFR 90 2 Kidney damage with mild decrease in GFR 60-89 3 Moderate decrease in GFR 30-59 4 Severe decrease in GFR 15-29 5 Kidney failure <15 (or dialysis) 8 Desirable: <150 Borderline High: 150-199 High: 200-499 Very High: >500 9 Desirable: <200 Borderline High: 200-239 High: >239 10 Low: <40 Desirable: 40-60 High: >60 11 Desirable: <100 Near Optimal: 100-129 Borderline High: 130-159 High: 160-189 Very High: >189 12 REFERENCE VALUE Desirable: <90 Above Desirable: 90-99 Borderline high: 100-119 High: 120-139 Very high: > wf=081 Test Performed by: [place] [address] 13 Elevated Lp(a). Lp(a) is prothrombotic and proatherogenic. Lp(a) expression is primarily genetically driven and is minimally altered by therapeutic lifestyle changes. Patients with large isoforms of Lp(a) may have elevated Lp(a) protein concentrations without increased risk. Measurement of Lp(a) cholesterol (test LPAWS/Lp(a) Cholesterol,S) may better facilitate cardiovascular risk assessment, since it is not influenced by isoform size. The National Lipid Association, the Atherosclerosis Society, and NCEP/ATPIII consider elevated Lp(a) an optional indicator for atherosclerotic cardiovascular disease risk refinement. Test Performed by: [address] [address] 14 Because ethnic data is not always readily available, this report includes an eGFR for both -Americans and non- Americans. The National Kidney Disease Education Program (NKDEP) does not endorse the use of the MDRD equation for patients that are not between the ages of 18 and 70, are , have extremes of body size, muscle mass, or nutritional status, or are non- or non-. According to the National Kidney Foundation, irrespective of diagnosis, the stage of the disease is based on the level of kidney function: Stage Description GFR(mL/min/1.73 m(2)) 1 Kidney damage with normal or decreased GFR 90 2 Kidney damage with mild decrease in GFR 60-89 3 Moderate decrease in GFR 30-59 4 Severe decrease in GFR 15-29 5 Kidney failure <15 (or dialysis) 15 Desirable <150 Borderline high 150-199 High 200-499 Very High >500 16 Desirable <200 Borderline high 200-239 High >239 17 Low <40 Desirable: 40-60 High: >60 18 Desirable: <100 mg/dL Near Optimal: 100-129 mg/dL Borderline High: 130-159 mg/dL High: 160-189 mg/dL Very High: >189 mg/dL 19 Low risk: <1.00 Average risk: 1.00-3.00 High risk: >3.00 20 Elevated Lp(a). Lp(a) is prothrombotic and proatherogenic. Lp(a) expression is primarily genetically driven and is minimally altered by therapeutic lifestyle changes. Patients with large isoforms of Lp(a) may have elevated Lp(a) protein concentrations without increased risk. Measurement of Lp(a) cholesterol (test LPAWS/Lp(a) Cholesterol,S) may better facilitate cardiovascular risk assessment, since it is not influenced by isoform size. The National Lipid Association, the Atherosclerosis Society, and NCEP/ATPIII consider elevated Lp(a) an optional indicator for atherosclerotic cardiovascular disease risk refinement. Test Performed by: [place] [address] Slate Splitter: Raymond Ivan II, M.D., Ph.D. 21 Desirable <150 Borderline high 150-199 High 200-499 Very High >500 22 Desirable <200 Borderline high 200-239 High >239 23 Low <40 Desirable: 40-60 High: >60 24 Desirable: <100 mg/dL Near Optimal: 100-129 mg/dL Borderline High: 130-159 mg/dL High: 160-189 mg/dL Very High: >189 mg/dL 25 Copy Result to: HEATHER MACIAS ([id number]) 26 Copy Result to: HEATHER MACIAS ([id number]) 27 Elevated Lp(a). Lp(a) is prothrombotic and proatherogenic. Lp(a) expression is primarily genetically driven and is minimally altered by therapeutic lifestyle changes. Patients with large isoforms of Lp(a) may have elevated Lp(a) protein concentrations without increased risk. Measurement of Lp(a) cholesterol (test LPAWS/Lp(a) Cholesterol,S) may better facilitate cardiovascular risk assessment, since it is not influenced by isoform size. The National Lipid Association, the Atherosclerosis Society, and NCEP/ATPIII consider elevated Lp(a) an optional indicator for atherosclerotic cardiovascular disease risk refinement. Test Performed by: [facility] - [address] [address] Slate Splitter: Raymond Ivan II, M.D., Ph.D. 28 Desirable: <100 mg/dL Near Optimal: 100-129 mg/dL Borderline High: 130-159 mg/dL High: 160-189 mg/dL Very High: >189 mg/dL 29 RUN DATE: 08/31/13 [facility] LAB LIVE PAGE 1 RUN TIME: [address] [place] [id number] Specimen Inquiry Name: LUDY BENEDICT : [address]: Sonya Johnson MD Acct: [id number] Unit: [id number] AGE: 53 Location: ED Re08/29/13 SEX: F Status: DEP ER SPEC: [id number] LEROY: 08/29/[address]: Ludy BRAUN REQ: [id number] RECD: 08/29/13 STATUS: MARILEE CASILLAS DR: [facility] López Macias MD _ SOURCE: URINE SPDESC: ORDERED: Urine Culture Procedure Result Verified Site Urine Culture Final 08/31/13- 0843 ML Organism 1 KLEBSIELLA PNEUMONIAE [place] Count >100,000 (Many) CFU/ML 1. KLEBSIELLA PNEUMONIAE [facility] RX --------- ------ Ampicillin R Cefazolin <=4 S Cefepime <=1 S Ceftriaxone <=1 S Ciprofloxacin <=0.25 S Gentamicin <=1 S Levofloxacin <=0.12 S Meropenem <=0.25 S Nitrofurantoin 64 I Tetracycline <=1 S Pipercillin/Tazobactam <=4 S Trimethoprim/Sulfamethoxazole <=20 S Amoxicillin/Clavulanic Acid <=2 S Aztreonam <=1 S Contact the Microbiology Department for any additional antibiotic reporting. END OF REPORT * ML=Testing performed at Main Lab DEPARTMENT OF PATHOLOGY, [address] [place] [address] Kulwant Hernandez M.D. Director [facility] # [id number] 30 >100 to <200 pg/mL: likely compensated congestive heart failure (CHF) 200 to 400 pg/mL: likely moderate CHF >400 pg/mL: likely moderate to severe CHF [facility] 31 Because ethnic data is not always readily available, this report includes an eGFR for both -Americans and non- Americans. The National Kidney Disease Education Program (NKDEP) does not endorse the use of the MDRD equation for patients that are not between the ages of 18 and 70, are , have extremes of body size, muscle mass, or nutritional status, or are non- or non-. According to the National Kidney Foundation, irrespective of diagnosis, the stage of the disease is based on the level of kidney function: Stage Description GFR(mL/min/1.73 m(2)) 1 Kidney damage with normal or decreased GFR 90 2 Kidney damage with mild decrease in GFR 60-89 3 Moderate decrease in GFR 30-59 4 Severe decrease in GFR 15-29 5 Kidney failure <15 (or dialysis) 32 Result TnIDx:0.03 Called to [id number] at: 21:38:41 by:[id number] Read back by: [id number] Reference Range and Interpretation: TnI (ng/mL) Interpretation Less Than 0.03 ng/mL Not supportive of diagnosis of CT 0.03 - 0.50 ng/mL Indeterminate: suggest serial studies if clinically indicated. Greater than 0.5 ng/mL Consistent with diagnosis of CT 33 Because ethnic data is not always readily available, this report includes an eGFR for both -Americans and non- Americans. The National Kidney Disease Education Program (NKDEP) does not endorse the use of the MDRD equation for patients that are not between the ages of 18 and 70, are , have extremes of body size, muscle mass, or nutritional status, or are non- or non-. According to the National Kidney Foundation, irrespective of diagnosis, the stage of the disease is based on the level of kidney function: Stage Description GFR(mL/min/1.73 m(2)) 1 Kidney damage with normal or decreased GFR 90 2 Kidney damage with mild decrease in GFR 60-89 3 Moderate decrease in GFR 30-59 4 Severe decrease in GFR 15-29 5 Kidney failure <15 (or dialysis) 34 Desirable <150 Borderline high 150-199 High 200-499 Very High >500 35 Desirable <200 Borderline high 200-239 High >239 36 Low <40 Desirable: 40-60 High: >60 37 Desirable <100 Near Optimal 100-129 Borderline high 130-159 High 160-189 Very High >189 38 FASTING 12 HOUR 39 FASTING 12 HOUR 40 Because ethnic data is not always readily available, this report includes an eGFR for both -Americans and non- Americans. The National Kidney Disease Education Program (NKDEP) does not endorse the use of the MDRD equation for patients that are not between the ages of 18 and 70, are , have extremes of body size, muscle mass, or nutritional status, or are non- or non-. According to the National Kidney Foundation, irrespective of diagnosis, the stage of the disease is based on the level of kidney function: Stage Description GFR(mL/min/1.73 m(2)) 1 Kidney damage with normal or decreased GFR 90 2 Kidney damage with mild decrease in GFR 60-89 3 Moderate decrease in GFR 30-59 4 Severe decrease in GFR 15-29 5 Kidney failure <15 (or dialysis) 41 HDL Interpretation: Undesirable: High Risk: Less than 40 MG/DL Desirable: Low Risk: Greater than 60 MG/DL 42 LDL Interpretation: Low Risk Optimal Level: LDL Less than 100 MG/DL Near or Above Optimal: LDL 100-129 MG/DL Borderline High Risk: LDL 130-159 MG/DL High Risk: LDL 160-189 MG/DL Very High Risk: LDL Greater than 189 MG/DL 43 Fasting 44 Levels at the lower end of the range may be needed for symptomatic heart failure and levels at the higher end of the range for rate control. Procedures Date Code Description Status 12/24/2017 13058 EKG Tracing & Interpretation Completed 05/03/2017 36047 Stress Test Completed 05/03/2017 76999 Myocardial Perfusion Imaging Tomographic (Spect) Multiple Completed Studies 12/08/2016 63541 EKG Tracing & Interpretation Completed 10/15/2015 45753 Holter Monitor Review (24 hr)dr review & interp only Completed 10/08/2015 54467 ECG Monitor/Recording W/Visual Superimposition Scanning Completed 08/27/2015 26996 EKG Tracing & Interpretation Completed 08/27/2015 81459 EKG Tracing & Interpretation Completed 08/13/2015 96725 ECHO Stress Test Incl Perf Contiuous ekg Monitoring W/Phys Completed Superv 07/23/2015 83046 EKG Tracing & Interpretation Completed 03/22/2015 15280 EKG Tracing & Interpretation Completed 03/16/2014 37052 Carotid Doppler,Bilateral Completed 03/02/2014 49958 EKG Tracing & Interpretation Completed 12/30/2013 99674 Treadmill Interp/Report Only Completed 12/30/2013 22445 Stress Test Supervsn W/Out I/R Completed 12/30/2013 79727 EKG, Interpretation Only Completed 12/30/2013 27013 EKG, Interpretation Only Completed 11/10/2013 20244 EKG Tracing & Interpretation Completed 09/06/2013 34568 ECHO Transthoracic, Real-Time 2D With Doppler And Color Completed Flow 09/04/2013 21606 Stress Test Completed 08/23/2013 53505 EKG Tracing & Interpretation Completed 08/14/2013 85392 EKG, Interpretation Only Completed 08/11/2013 71708 Left Heart Cath. Incl S/I Coronaries, Angio S/I V Gram If Completed Done 08/11/2013 15986 Revascularization Chronic Total Occlusion Coronary Artery Completed 06/02/2013 59402 Trigger Finger Release Incision / Tendon Sheath Incision Completed 04/19/2013 81968 Rad Exam; Hand Comp Completed 03/10/2013 77530 EKG Tracing & Interpretation Completed 03/01/2013 67160 ECHO Transthoracic, Real-Time 2D With Doppler And Color Completed Flow 09/13/2012 54694 Carpal Tunnel Release Completed 08/04/2012 03591 Inject Tendon Sheath Or Ligament Aponeurosis Eg Plantar Completed Fascia 06/28/2012 68494 Carpal Tunnel Release Completed 06/23/2012 36694 Stress Test Completed 06/23/2012 91077 Myocardial Perfusion Imaging Tomographic (Spect) Multiple Completed Studies 06/21/2012 80877 EKG Tracing & Interpretation Completed 04/29/2012 28049 Nerve Conduction 07-08 Studies Completed 03/01/2012 50622 EKG Tracing & Interpretation Completed 08/08/2010 94089 EKG, Interpretation Only Completed Encounters Type Date Location Provider Dx Diagnosis Office Visit 12/24/2017 [facility] Heather Macias, 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 disease of samish cor art w unsp ang pctrs E78.2 Mixed hyperlipidemia 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 premature depolarization Office Visit 07/15/2016 [facility] Venkatesh Light G40.209 Local-rel 9:45a Clinic Yolanda Bonilla symptc epi w cmplx prt seiz,not ntrct,w/o stat epi I69.398 Other sequelae of cerebral infarction Office Visit 12/17/2015 [place] Heather Macias 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 3:15p Cardiology Of M.D. 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 E78.2 Mixed hyperlipidemia I25.2 Old myocardial infarction R06.02 Shortness of breath Office Visit 09/27/2015 9:15a [facility] KADE Gibbons I25.119 Athscl heart Of [place] disease of samish cor art w unsp ang pctrs E78.2 Mixed hyperlipidemia R07.9 Chest pain, unspecified 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 premature depolarization Office Visit 08/27/2015 9:30a [facility] KADE Gibbons I25.119 Athscl heart Of [place] disease of samish cor art w unsp ang pctrs I25.2 Old myocardial infarction E78.2 Mixed hyperlipidemia 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 premature depolarization R07.9 Chest pain, unspecified Office Visit 07/23/2015 9:00a [facility] Heather Macias, I25.119 Athscl heart Of [facility] Yolanda disease of samish cor art w unsp ang pctrs I73.9 Peripheral vascular disease, unspecified I25.2 Old myocardial infarction E78.2 Mixed hyperlipidemia R06.00 Dyspnea, unspecified Office Visit 04/10/2015 [facility] G40.209 Local-rel symptc 9:45a Neurologic Yolanda Bonilla epi w cmplx prt Services Of [facility] seiz,not ntrct,w/o stat epi Office Visit 03/22/2015 [place] Heather Macias, E78.2 Mixed 9:15a Cardiology Of Yolanda hyperlipidemia [facility] 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 I25.2 Old myocardial infarction 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 premature depolarization Office Visit 08/07/2014 [place] Heather Macias, 272.2 Hyperlipidemia Mixed 9:45a Cardiology Of MEmily [facility] 414.01 Coronary Atherosclerosis [place] 412 Myocardial Infarction Old 786.50 Pain Chest Unspec Office Visit 05/02/2014 9:45a [facility] Nikki Bellamy, 345.90 Epilepsy Unspec Services Of [facility] GLUER W/O Intractable 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 Office Visit 04/27/2014 [place] Heather Macias, 272.2 Hyperlipidemia Mixed 9:30a Cardiology Of Yolanda [facility] 414.01 Coronary Atherosclerosis [place] 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 Unspec Hospitalists 414.9 Ischemic Heart Disease Chronic Unspec 345.90 Epilepsy Unspec W/O Intractable Office Visit 12/29/2013 10:00a [facility] Nancy Light 786.50 Pain Chest Assoc,kirill Guo, N.PJayne Unspec Hospitalists 414.9 Ischemic Heart Disease Chronic Unspec 345.90 Epilepsy Unspec W/O Intractable Office Visit 11/10/2013 2:15p [facility] Heather Macias, 412 Myocardial Of [place] M.D. Infarction Old 413.9 Angina Pectoris Other Unspec 272.2 Hyperlipidemia Mixed Office Visit 10/11/2013 10:15a [facility] Heather Macias, 414.9 Ischemic Heart Of [place] M.D. 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 Intermediate Office Visit 08/13/2013 2:06p [facility] Chris Garcia 414.9 Ischemic Heart Of Michael Collado M.D. Disease Chronic Unspec 411.1 Coronary Syndrome Intermediate Office Visit 08/12/2013 1:33p [facility] Chris Garcia 411.1 Coronary Syndrome Of Michael Collado M.D. Intermediate 414.9 Ischemic Heart Disease Chronic Unspec Office Visit 08/11/2013 1:27p [facility] Chris D. 411.1 Coronary Syndrome Of Michael Collado M.D. 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 Hand [place] 727.03 Trigger Finger Acquired Office Visit 03/10/2013 [place] Heather Macias, 414.01 Coronary 9:00a Cardiology Of M.D. 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 Infarction Old 786.09 Dyspnea & Respiratory Abnormalities Other 786.59 Pain Chest Other V72.81 Examination Preoperative Cardiovascular Office Visit 06/02/2012 11:15a Orthopedic Yadira Plaza, 354.0 Carpal Tunnel Services Of M.DJayne Syndrome C.M.A. 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 at [facility]01/18/2018 - Venkatesh Bonilla M.D.I63.9 Cerebral infarction, [id number] Localization-related (focal) (partial) symptomatic epilepsyFollow up:6 [id number] Disorder of the skin and subcutaneous tissue, unspecifiedReferral:Susanna Gilmore MD, Dermatology
[2018-02-12 11:24] VITALS: BP 119/69
--- NOTE | 2018-02-12 11:53 | UC ---
Shoulder Pain HPI - HPI Summary HPI Summary: 1 wk hx of L shoulder pain. - History of Current Complaint Chief Complaint: UCUpperExtremity Stated Complaint: SHOULDER INJURY Time Seen by Provider: 02/12/18 11:44 Hx Obtained From: Patient Location Of Pain: Is Discrete @ - R shoulder Pain Intensity: 7 Pain Scale Used: 0-10 Numeric - Allergies/Home Medications Allergies/Adverse Reactions: Allergies Allergy/AdvReac Type Severity Reaction Status Date / Time atorvastatin [From Lipitor] Allergy ukn Verified 02/12/18 11:34 clopidogrel [From Plavix] Allergy unk Verified 02/12/18 11:35 ezetimibe [From Vytorin] Allergy unk Verified 02/12/18 11:35 Iodinated Contrast- Oral and Allergy Hives Verified 02/12/18 11:39 IV Dye latex Allergy Rash Verified 02/12/18 11:37 levetiracetam [From Keppra] Allergy unk Verified 02/12/18 11:38 metoprolol [From Toprol XL] Allergy unk Verified 02/12/18 11:39 niacin Allergy unk Verified 02/12/18 11:41 [From Niaspan Extended-Release] nitroglycerin Allergy Unknown Verified 02/12/18 11:41 Reaction Details oxcarbazepine Allergy Unknown Verified 02/12/18 11:42 Reaction Details phenytoin [From Dilantin] Allergy Unknown Verified 02/12/18 11:45 Reaction Details rosuvastatin [From Crestor] Allergy Unknown Verified 02/12/18 11:46 Reaction Details simvastatin [From Vytorin] Allergy unk Verified 02/12/18 11:35 ticagrelor Allergy Unknown Verified 02/12/18 11:47 Reaction Details TAPE Allergy Severe Rash Uncoded 07/20/17 09:01 iv contrast Allergy hives Uncoded 02/12/18 11:36 difficulty breathing PMH/Surg Hx/FS Hx/Imm Hx Previously Healthy: Yes Cardiovascular History: Cardiac Disease, Hypertension, Myocardial Infarction, Other - stroke Neurological History: Seizures - Surgical History Surgical History: Yes Surgery Procedure, Year, and Place: 1975 RT INGUINAL HERNIA [facility],1977 C SECTION [facility], 1978 C SECTION [facility], 1981 C SECTION [facility], 1983 C SECTION [facility], 2006 [address] [facility] [employer]-2015 [place] [facility] [place] [facility] [place] CARPAL TUNNEL RELEASE[place]. 2013 - Finger surgery (trigger finger) - Family History Known Family History: Positive: Cardiac Disease Negative: Diabetes - Social History Alcohol Use: None Substance Use Type: None Smoking Status (MU): Former Smoker Type: Cigarettes Amount Used/How Often: 1 PPD X 32 YEARS Length of Time of Smoking/Using Tobacco: Quit 12 years ago When Did the Patient Quit Smoking/Using Tobacco: 2005 - Immunization History Most Recent Influenza Vaccination: November Most Recent Tetanus Shot: 2005 Most Recent Pneumonia Vaccination: 2010 Review of Systems All Other Systems Reviewed And Are Negative: Yes Constitutional: Positive: Negative. Negative: Fever Skin: Positive: Negative. Negative: Bruising Respiratory: Positive: Negative Cardiovascular: Positive: Negative Neurovascular: Negative: Decreased Sensation, Decreased Pulses Musculoskeletal: Positive: Arthralgia - L shoulder, Decreased ROM. Negative: Edema Neurological: Negative: Numbness Physical Exam Triage Information Reviewed: Yes Appearance: Well-Appearing Vital Signs: Initial Vital Signs Temp 98.2 F 02/12/18 11:18 Pulse 58 02/12/18 11:18 Resp 18 02/12/18 11:18 BP 119/69 02/12/18 11:18 Pulse Ox 100 02/12/18 11:18 Vital Signs Reviewed: Yes Cardiovascular: Positive: Brisk Capillary Refill - R fingers Musculoskeletal: Positive: Strength Intact - L arm, No Edema - L shoulder, ROM Limited @ - decr. at L shoulder, Other: - right arm, L elbow, L wrist unremarkable. Neg. lift off in L arm Shoulder Course/Dx - Course Assessment/Plan: 1 wk hx of L shoulder pain, worsening. No signs of infection and bursitis suspected. exam significant for moderate tenderness at capsule and decr. rrom. neurovascularly intact. nsaids for tx. - Differential Dx/Diagnosis Differential Diagnosis/HQI/PQRI: Bursitis, Contusion, Rotator Cuff Injury, Sprain, Strain Provider Diagnosis: Shoulder bursitis Discharge - Sign-Out/Discharge Documenting (check all that apply): Patient Departure All imaging exams completed and their final reports reviewed: No Studies - Discharge Plan Condition: Good Disposition: HOME Prescriptions: Ibuprofen [Ibu] 600 mg PO TID PRN 10 Days #30 tablet PRN Reason: Pain Patient Education Materials: Shoulder Bursitis (ED) Referrals: López Matt MD [Primary Care Provider] - - Billing Disposition and Condition Condition: GOOD Disposition: Home
[2018-02-12] MEDS ORDERED: Ketorolac INJ* 30 MG/ML 1 ML VIAL IM ONE (12:18)
== END 2018-02-12 12:42 | disposition home or self-care (01) ==
LOC: UCEAST 11:13
DX: M75.52 Bursitis of left shoulder (principal); Z88.8 Allergy status to other drugs, medicaments and biological substances; Z91.041 Radiographic dye allergy status; Z91.040 Latex allergy status; Z88.1 Allergy status to other antibiotic agents; Z91.048 Other nonmedicinal substance allergy status; Z87.891 Personal history of nicotine dependence
CPT/HCPCS: 99212; G0463; J1885

== ENCOUNTER 2018-08-07 09:18 | Emergency (ER) | payer MEDICARE ==
--- OUTSIDE RECORDS SUMMARY | 2018-08-07 09:28 | XMS REPORT | Continuity of Care Document ---
:1960 External Reference #:[id number] Author Name Debi Mcknight Care Team Providers Name Role Phone López Matt MD Primary Care Physician Unavailable Payers Date Identification Numbers Payment Provider Subscriber Effective: 2013 Policy Number: [id number] Medicare Blue Ppo Ludy Benedict Group Number: [id number] [address] PayID: [id number] [place] [address] Effective: 2012 Policy Number: [id number] Medicare Blue Ppo Ludy Benedict Expires: 2013 PayID: [id number] [address] [address] [place] [address] Effective: 2011 Policy Number: [id number] Medicare Blue Ppo Ludy Benedict Expires: 2012 PayID: [id number] [address] [address] [place] [address] Problems Active Problems Provider Date Coronary arteriosclerosis Heather Macias M.D. Onset: 03/10/2013 Mixed hyperlipidemia Heather Macias M.D. Onset: 03/10/2013 Carotid artery occlusion Heather Macias M.D. Onset: 04/27/2014 Old myocardial infarction Heather Macias M.D. Onset: 08/07/2014 Premature beats Heather Macias M.D. Onset: 03/22/2015 Atherosclerotic heart disease of [place] coronary Heather Macias M.D. Onset: artery with unspecified angina pectoris Family History Date Family Member(s) Observation Comments General Diabetes General Heart Disease General Cancer Mother Coronary Artery Disease (CAD) [place] in 70s, Maternal Grandfather Coronary Artery Disease (CAD) multiple [place]'s, 95 yo Maternal Grandmother Coronary Artery Disease (CAD) Multiple [place]'s Social History Type Date Description Comments Sex Unknown Marital Status Single Lives With Boyfriend Occupation Disabled Tobacco Use Start: Unknown End: Former Cigarette Smoker Quit 2005 Unknown ETOH Use Denies alcohol use Recreational Drug Use Denies Drug Use Tobacco Use Start: Unknown End: Patient is a former Quit 2005 Unknown smoker Tobacco Use Start: Unknown End: former Cigarette smoker Unknown Smoking Status Reviewed: 07/19/18 former Cigarette smoker Exercise Type/Frequency Exercises regularly 3-4 times a week about half hour Allergies, Adverse Reactions, Alerts Active Allergies Reaction Severity Comments Date Crestor GERD 03/10/2013 Nitroglycerin low BP, itching 03/10/2013 Latex rash/hives 03/10/2013 Dye For Heart Catheterization 03/10/2013 Toprol XL fatigue/ OLIVO 03/10/2013 Niaspan GI 03/10/2013 Oxcarbazepine seizures 03/10/2013 Keppra headaches 03/10/2013 Dilantin rash 03/10/2013 Plavix headache 03/10/2013 Vytorin myalgias 03/10/2013 Lipitor myalgias 03/10/2013 Aspartame cognative 08/07/2014 Lactose (Intolerance) reflux/CP 08/07/2014 Inactive Allergies NKDA 02/02/2013 Benadryl 03/10/2013 Medications Active Medications SIG Qnty Indications Ordering Date Provider Topiramate 1 and 1/2 by 315tabs G40.209 Venkatesh Light 07/16/2017 100mg mouth every Yolanda Bonilla Tablets morning and 2 every night at bedtime Lescol XL 1 tab daily at 90tabs Heather Macias, 12/02/2015 80mg Tablets bedtime M.D. ER 24HR Digoxin 1 by mouth 90tabs Heather Macias, 02/13/2014 250mcg Tablets everyday M.D. Metoprolol Succinate 1/2 tab by mouth 45tabs I21.4 Heather Macias, 2013 ER every day M.D. 25mg Tablets ER 24HR Vitamin D3 800 Iu one tab twice a Unknown day Terbinafine HCL 1 by mouth every Unknown 250mg day for three Tablets months Calcium 600 High one tab twice a Unknown Potency day 600mg Tablets Zetia 1 by mouth every 90tabs Heather Macias, 10mg Tablets day M.D. Lansoprazole 1 by mouth every 90caps Unknown 30mg day Capsules DR Co-Enzyme Q10 po qd Unknown 100mg Capsules [place] 3 1 po qd. 100caps Unknown 1000mg Capsules Aspirin 1 po qd Unknown 81mg Tablets History Medications Potassium Chloride 1 by mouth every 90tabs I49.3 Amarilis Guo, 2017 - ER day N.P. 08/05/2017 20Meq Tablets ER Topiramate 100mg in the 90tabs G40.209 Venkatesh Light 04/10/2015 - 50mg morning and 150mg Yolanda Bonilla 07/16/2017 Tablets at night Sucralfate 10 mls qid with 1200ml Heather Macias, 11/17/2013 - 1GM/10ML meals and qhs M.D. 04/27/2014 Suspension Ranexa 1 by mouth once a 60tabs I20.8 Heather Macias, 10/11/2013 - 500mg Tablets day in in the M.D. 06/11/2017 ER 12HR morning Welchol 1 pill PO bid and 180tabs 272.2 Heather Macias, 10/11/2013 - 625mg Tablets increase as M.D. 03/01/2014 directed by office. Compression Thigh high light 1units Heather Macias, 08/23/2013 - Stockings to moderate M.D. 11/08/2013 [facility]. Dx: hypotension, headache, orthostatic dizzyness. Post [place] and post CVA Brilinta 1 tab by mouth 60tabs 410.72 Heather Macias, 08/23/2013 - 90mg Tablets twice a day M.D. 08/07/2014 Plavix 1 by mouth every 30tabs 410.72 Chris DJayne 08/14/2013 - 75mg Tablets day Brand, M.D. 08/23/2013 [place] 1-2 by mouth q4-6 30tabs Yadira 05/29/2013 - 5-325mg Tablets hour as needed Yolanda Plaza 08/22/2013 pain [place] 1-2 po q4-6h prn 30tabs Yadira 06/22/2012 - 5-325mg Tablets pain Yolanda Plaza 02/23/2013 Digoxin 1 po qd 90tabs Heather Macias, 06/01/2012 - 0.25mg M.DJayne 02/13/2014 Tablets Topamax 1 by mouth twice a 180tabs Venkatesh Light 04/29/2012 - 100mg Tablets day Yolanda Bonilla 06/10/2017 Crestor take 1/2 tablet by 30tabs Heather Macias, 04/27/2012 - 5mg Tablets mouth twice per M.DJayne 03/02/2013 week Prevacid 2 po qd 90caps Venkatesh Light 03/16/2012 - 15mg Yolanda Bonilla 05/29/[address] Tahmina 1 mg bid for 1 wk 240tabs Venkatesh Light 03/16/2012 - 25mg Tablets then 2 bid for 1 Yolanda Bonilla 04/29/2012 wk then 3 bid for 1 wk then 4 bid Lamotrigine 1 q evening 60tabs Venkatesh Light 11/17/2011 - 150mg Yolanda Bonilla 03/16/2012 Tablets Lamotrigine 1 po qam 120tabs Venkatesh Light - 100mg Yolanda Bonilla 03/02/2013 Tablets Digoxin daily Unknown - 0.25mg/ml 06/01/2012 Solution Ciprofloxacin HCL 1 po bid for UTI Unknown - 10/09/2013 500mg Tablets Lescol 1 tab daily at 90caps Heather Macias, - 80mg Capsules bedtime M.DJayne 12/02/2015 Topiramate 1 by mouth in the Unknown - 100mg Am and one by 07/22/2015 Tablets mouth in the PM Ranexa 1 by mouth twice a Unknown - 500mg Tablets day 06/27/2017 ER 12HR Medications Administered in Office Medication SIG Qnty Indications Ordering Provider Date Inj, Regadenoson, 0.1 MG Cem Pereyra, [facility] 05/03/2017 Injection Technetium TC 99M Cem Pereyra, DO [facility] 05/03/2017 Tetrofosmin, Per Unit Dose Up To 40 Millicuries Injection Depomedrol 80MG Yadira Plaza M.D. 08/04/2012 Injection Technetium TC 99M Heather Macias M.D. 06/23/2012 Tetrofosmin, Per Unit Dose Up To 40 Millicuries Injection Vital Signs Date Vital Result Comment 07/19/2018 10:47am Height 58.25 inches 4'10.25" Weight 123.00 lb Heart Rate 58 /min BP Systolic 102 mmHg BP Diastolic 58 mmHg BMI (Body Mass Index) 25.5 kg/m2 01/18/2018 10:34am Height 58.25 inches 4'10.25" Weight [...] Test Result H/L Range Note Lipid Profile 03/22/2018 [facility] Triglycerides 189 mg/dL 1 (Trig/Chol/HDL) [address] [place] [address] [phone] Cholesterol 168 mg/dL 2 HDL Cholesterol 39.0 mg/dL 3 LDL Cholesterol 91 mg/dL 4 Laboratory test 03/22/2018 [facility] Alt (SGPT) 20 U/L N 7- 52 [address] [place] [address] [phone] FLP/Alt Panel 03/22/2018 [facility] Alt 20 U/L N 7-[address] [place] [address] [phone] Lipid Profile 03/22/2018 [facility] Triglycerides 189 mg/dL 7 (Trig/Chol/HDL) [address] [place] [address] [phone] Cholesterol 168 mg/dL 8 HDL Cholesterol 39.0 mg/dL 9 LDL Cholesterol 91 mg/dL 10 Laboratory test 12/27/2017 [facility] Creatine 72 U/L N 10- 223 finding [address] [facility] Kinase(CK) [place] [address] [phone] Digoxin 1.1 ng/ml N 0.8-2.0 Comp Metabolic Panel 12/27/2017 [facility] Sodium 142 mmol/L N 135-145 [address] [place] [address] [phone] Potassium 4.0 mmol/L N 3.5-5.0 Chloride 111 [...] Egfr Non- 71.4 >60 Egfr 86.3 >60 11 Lipid Profile 12/27/2017 [facility] Triglycerides 141 mg/dL 12 (Trig/Chol/HDL) [address] [place] [address] [phone] Cholesterol 161 mg/dL 13 HDL Cholesterol 41.2 mg/dL 14 LDL Cholesterol 92 mg/dL 15 Basic Metabolic Panel 08/19/2017 [facility] Sodium 141 mmol/L N 135-145 [address] [place] [address] [phone] Potassium 4.0 mmol/L N 3.5-5.0 Chloride 109 mmol/L N 101-111 Co2 Carbon Dioxide 24 mmol/L N 22-32 Anion Gap 8 mmol/L N 2-11 Glucose 130 mg/dL High 70-100 Blood Urea Nitrogen 8 mg/dL N 6-24 Creatinine 0.75 mg/dL N 0.51-0.95 BUN/Creatinine Ratio 10.7 N 8-20 Calcium 8.7 mg/dL N 8.6-10.3 Egfr Non- 79.1 >60 Egfr 95.7 >60 16 Laboratory test 08/19/2017 [facility] Magnesium 2.0 mg/dL N 1.9-2.7 finding [address] [place] [address] [phone] Digoxin 0.8 ng/ml N 0.8-2.0 Laboratory test finding 08/05/2017 [facility] Magnesium <pending > [address] [place] [address] [phone] Digoxin <pending> Basic Metabolic Panel 06/28/2017 [facility] Sodium 140 mmol/L N 139-145 [address] [place] [address] [phone] Potassium 4.2 mmol/L N 3.5-5.0 Chloride 107 mmol/L N 101-111 Co2 Carbon Dioxide 26 mmol/L N 22-32 Anion Gap 7 mmol/L N 2-11 Glucose 137 mg/dL High 70-100 Blood Urea Nitrogen 11 mg/dL N 6-24 Creatinine 0.78 mg/dL N 0.51-0.95 BUN/Creatinine Ratio 14.1 N 8-20 Calcium 9.2 mg/dL N 8.6-10.3 Egfr Non- 75.6 >60 Egfr 97.2 >60 17 Laboratory 06/28/2017 [facility] Magnesium 2.1 N 1.9-2.7 test finding [address] mg/[place] [address] [phone] Laboratory 06/11/2017 [facility] Magnesium <pendin test finding [address] g> [place], [place] [phone] Lipoprotein 12/07/2016 [facility] Lipoprotein 97 Abnormal <= 30 18 Profile/Moore 101 Profile Apo a mg/dL Lp(a) [place] [address] [phone] Laboratory 12/07/2016 [facility] Apolipoprotein B 77 N [address] mg/dL [place], [place] [phone] Lipid Profile 12/07/2016 [facility] Triglycerides 158 N 20 (Trig/Chol/HDL [address] mg/dL ) [place], [place] [phone] Cholesterol 147 mg/dL N 21 HDL Cholesterol 43.3 mg/dL N 22 LDL Cholesterol 72 mg/dL N 23 Liver Function 07/13/2016 [facility] Total Protein 6.0 g/dL Low 6.4-8.[address] [place] [address] [phone] Albumin 3.9 g/dL N 3.2-5.2 Globulin 2.1 g/dL N 2-4 Albumin/Globulin Ratio 1.9 N 1-3 Total Bilirubin 0.60 mg/dL N 0.2-1.0 Direct Bilirubin 0.10 mg/dL N 0.03-0.18 Indirect Bilirubin 0.5 mg/dL N 0.3-1.0 Alkaline Phosphatase 52 U/L N 34-104 Alt 12 U/L N 7-52 Ast 12 U/L Low 13-39 Lipid Profile 07/13/2016 [facility] Triglycerides 139 mg/dL N 24 (Trig/Chol/HDL) [address] [place] [address] [phone] Cholesterol 135 mg/dL N 25 HDL Cholesterol 32.8 mg/dL N 26 LDL Cholesterol 74 mg/dL N 27 Basic Metabolic Panel 07/13/2016 [facility] Sodium 140 mmol/L N 133-[address] [place] [address] [phone] Potassium 4.2 mmol/L N 3.5-5.0 Chloride 111 mmol/L N 101-111 Co2 Carbon Dioxide 24 mmol/L N 22-32 Anion Gap 5 mmol/L N 2-11 Glucose 121 mg/dL High 70-100 Blood Urea Nitrogen 13 mg/dL N 6-24 Creatinine 0.88 mg/dL N 0.51-0.95 BUN/Creatinine Ratio 14.8 N 8-20 Calcium 8.7 mg/dL N 8.6-10.3 Egfr Non- 66.0 N >60 Egfr 84.9 N >60 28 CBC Auto Diff 07/13/2016 [facility] White Blood 7.5 10^3/uL N 3.5-10.[address] [place] [address] [phone] Red Blood Count 4.59 10^6/uL N 4.0-5.4 [...] Nucleated Red Blood Cells % 0 N Laboratory test finding 07/02/2015 [facility] Ast (Sgot) 13 U/L N 13-[address] [place] [address] [phone] CRP High Sensitivity 1.00 mg/L N 29 Creatine Kinase(CK) 52 U/L N 10-223 Lipoprotein 07/02/2015 [facility] Lipoprotein 88 mg/dL Abnormal <=30 30 Profile/[place] [address] Profile Apo a Lp(a) [place], [place] [address] [phone] Lipid Profile 07/02/2015 [facility] Triglycerides 168 N 31 (Trig/Chol/HDL) [address] mg/dL [place], [place] [phone] Cholesterol 142 mg/dL N 32 HDL Cholesterol 37.7 mg/dL N 33 LDL Cholesterol 71 mg/dL N 34 Laboratory 07/02/2015 [facility] Digoxin 1.4 ng/ml N 0.8-2.0 [address] [place] [address] [phone] Laboratory 07/02/2015 [facility] Digoxin 1.4 ng/ml N 0.8-2.0 36 test finding [address] [place] [address] [phone] Lipoprotein 07/02/2015 [facility] Lipoprotein 88 mg/dL Abnormal <=30 37 Profile/[place] [address] Profile Apo a Lp(a) [place], [place] [phone] Laboratory 04/30/2014 [facility] LDL 194 mg/dL N 38 test finding 101 [facility] [place] [address] Direct [phone] Urinalysis 08/29/2013 [facility] Urine Color Yellow N Profile [address] [place] [address] [phone] Urine Appearance Cloudy N Urine Specific [place] 1.006 Low 1.010-1.030 Urine pH 7.0 N [...] Present Abnormal Absent Urine Culture And 08/29/2013 [facility] Urine Culture (SEE NOTE ) 39 Sensitivities [address] [place] [address] [phone] Comp Metabolic 08/11/2013 [facility] Sodium 138 mmol/L N 133- [address] [place] [address] [phone] Potassium 3.9 mmol/L N 3.7-5.6 Chloride 106 [...] 65.0 N >60 Egfr 83.6 N >60 40 CBC Auto Diff 08/11/2013 [facility] White Blood 9.0 10^3/uL N 4.8-10.[address] [place] [address] [phone] Red Blood Count 4.39 10^6/uL N 4.0-5.4 [...] Blood Cells % 0.1 N Inr/Protime 08/11/2013 [facility] Inr 0.95 N 0.85-1.06 [address] [place] [address] [phone] Laboratory test 08/11/2013 [facility] Activated 27.0 N 24.0- 36.[address] [place] [address] [place] [address] Thrombo Time [phone] B Type Natriuretic Peptide 23 pg/mL N 41 Laboratory test 08/11/2013 [facility] Magnesium 2.1 mg/dL N 1.9-2.[address] [place] [phone] CKMB 08/11/2013 [facility] CKMB ng/mL 1.2 ng/mL N 0.6-6.[address] [place] [phone] Laboratory test 08/11/2013 [facility] Troponin I 0.03 ng/mL N <0.[address] [place] [phone] Digoxin 1.2 ng/ml N 0.8-2.0 Laboratory 04/17/2013 [facility] Hepatitis C Nonreactive Nonreactive 43 test finding [address] [place] [address] [place] [address] [phone] Lipid Profile 04/17/2013 [facility] Triglycerides 177 mg/dL 44 (Trig/Chol/HD [facility] [place]) [place] [address] [phone] Cholesterol 210 mg/dL 45 HDL Cholesterol 32.8 mg/dL 46 LDL Cholesterol 142 mg/dL 47 Basic Metabolic Panel 04/17/2013 [facility] Sodium 139 mmol/L 133-[address] [place] [address] [phone] Potassium 4.0 mmol/L 3.7-5.6 Chloride 110 mmol/L 101-111 Co2 Carbon Dioxide 25 mmol/L 22-32 Anion Gap 4 mmol/L 2-11 Glucose 111 mg/dL High 70-100 Blood Urea Nitrogen 10 mg/dL 6-24 Creatinine 0.88 mg/dL 0.51-0.95 BUN/Creatinine Ratio 11.4 8-20 Calcium 8.9 mg/dL 8.6-10.3 Egfr Non- 66.7 >60 Egfr 85.8 >60 48 Laboratory test 04/17/2013 [facility] Digoxin 0.9 ng/ml 0.8- 2.0 [address] [place] [address] [phone] Comp Metabolic Panel 03/14/2012 [facility] Sodium 137 mmol/L 133-[address] [place] [address] [phone] Potassium 4.3 mmol/L 3.5-5.0 Chloride 104 mmol/L [...] Egfr Non- 65.5 >60 Egfr 84.2 >60 50 Lipid Profile 03/14/2012 [facility] Triglycerides 150 mg/dL 40-200 (Trig/Chol/HDL) [address] [place] [address] [phone] Cholesterol 268 mg/dL High Less than 200 HDL Cholesterol 36 mg/dL Low 40-60 51 Cholesterol/HDL Ratio 7.4 Average High 1-4.44 LDL Cholesterol 202.0 mg/dL High Less Than 100 52 Laboratory test 03/14/2012 [facility] Creatine 77 U/L 0-200 [address] [place] [address] [phone] Laboratory test 03/14/2012 [facility] Digoxin 0.6 ng/mL 0.5- 1.5 [address] [place] [address] [phone] 1 Desirable: <150 Borderline High: 150-199 High: 200-499 Very High: >500 2 Desirable: <200 Borderline High: 200-239 High: >239 3 Low: <40 Desirable: 40-60 High: >60 4 Desirable: <100 Near Optimal: 100-129 Borderline High: 130-159 High: 160-189 Very High: >189 5 In Feburary Copy Result to: TRINI MCDANIEL ([id number]) 6 In Feburary Copy Result to: TRINI MCDANIEL ([id number]) 7 Desirable: <150 Borderline High: 150-199 High: 200-499 Very High: >500 8 Desirable: <200 Borderline High: 200-239 High: >239 9 Low: <40 Desirable: 40-60 High: >60 10 Desirable: <100 Near Optimal: 100-129 Borderline High: 130-159 High: 160-189 Very High: >189 11 Because ethnic data is not always readily [...] 15-29 5 Kidney failure <15 (or dialysis) 12 Desirable: <150 Borderline High: 150-199 High: 200-499 Very High: >500 13 Desirable: <200 Borderline High: 200-239 High: >239 14 Low: <40 Desirable: 40-60 High: >60 15 Desirable: <100 Near Optimal: 100-129 Borderline High: 130-159 High: 160-189 Very High: >189 16 Because ethnic data is not always readily [...] 15-29 5 Kidney failure <15 (or dialysis) 17 Because ethnic data is not always readily [...] 15-29 5 Kidney failure <15 (or dialysis) 18 Elevated Lp(a). Lp(a) is prothrombotic and proatherogenic. [...] cardiovascular disease risk refinement. Test Performed by: [address] [address] 19 REFERENCE VALUE Desirable: <90 Above Desirable: 90-99 Borderline high: 100-119 High: 120-139 Very high: > hj=[id number] Test Performed by: [address] [address] 20 Desirable: <150 Borderline High: 150-199 High: 200-499 Very High: >500 21 Desirable: <200 Borderline High: 200-239 High: >239 22 Low: <40 Desirable: 40-60 High: >60 23 Desirable: <100 Near Optimal: 100-129 Borderline High: 130-159 High: 160-189 Very High: >189 24 Desirable <150 Borderline high 150-199 High 200-499 Very High >500 25 Desirable <200 Borderline high 200-239 High >239 26 Low <40 Desirable: 40-60 High: >60 27 Desirable: <100 mg/dL Near Optimal: 100-129 mg/dL Borderline High: 130-159 mg/dL High: 160-189 mg/dL Very High: >189 mg/dL 28 Because ethnic data is not always readily [...] 15-29 5 Kidney failure <15 (or dialysis) 29 Low risk: <1.00 Average risk: 1.00-3.00 High risk: >3.00 30 Elevated Lp(a). Lp(a) is prothrombotic and proatherogenic. [...] cardiovascular disease risk refinement. Test Performed by: [place] [address] Waste Elimination: Trini Ivan II, M.D., Ph.D. 31 Desirable <150 Borderline high 150-199 High 200-499 Very High >500 32 Desirable <200 Borderline high 200-239 High >239 33 Low <40 Desirable: 40-60 High: >60 34 Desirable: <100 mg/dL Near Optimal: 100-129 mg/dL Borderline High: 130-159 mg/dL High: 160-189 mg/dL Very High: >189 mg/dL 35 Copy Result to: HEATHER MACIAS ([id number]) 36 Copy Result to: HEATHER MACIAS ([id number]) 37 Elevated Lp(a). Lp(a) is prothrombotic and proatherogenic. [...] cardiovascular disease risk refinement. Test Performed by: [place] [address] Waste Elimination: Trini Ivan II, M.D., Ph.D. 38 Desirable: <100 mg/dL Near Optimal: 100-129 mg/dL Borderline High: 130-159 mg/dL High: 160-189 mg/dL Very High: >189 mg/dL 39 RUN DATE: 08/31/13 [facility] LAB LIVE PAGE 1 RUN TIME: [address] [place] [address] Specimen Inquiry Name: LUDY BENEDICT : [address]: Sonya Johnson MD Acct: [id number] Unit: [id number] AGE: 53 Location: ED Re08/29/13 SEX: F Status: DEP ER SPEC: [id number] LEROY: 08/29/13-[address] [facility] [address]: Ludy BRAUN REQ: [id number] RECD: 08/29/13 STATUS: MARILEE CASILLAS DR: [facility] López Macias MD _ SOURCE: URINE SPDESC: ORDERED: Urine Culture Procedure Result Verified Site Urine Culture Final 08/31/13- 0843 ML Organism 1 KLEBSIELLA PNEUMONIAE [place] Count >100,000 (Many) CFU/ML 1. KLEBSIELLA PNEUMONIAE [...] performed at Main Lab DEPARTMENT OF PATHOLOGY, [address] [place] [address] Kulwant Hernandez M.D. Director [facility] # [id number] 40 Because ethnic data is not always [...] 5 Kidney failure <15 (or dialysis) 41 >100 to <200 pg/mL: likely compensated congestive heart failure (CHF) 200 to 400 pg/mL: likely moderate CHF >400 pg/mL: likely moderate to severe CHF [place] [facility] 42 Result TnIDx:0.03 Called to [id number] at: 21:38:41 by:[id number] Read back by: [id number] Reference Range and Interpretation: TnI (ng/mL) Interpretation Less Than 0.03 ng/mL Not supportive of diagnosis of [place] 0.03 - 0.50 ng/mL Indeterminate: suggest serial studies if clinically indicated. Greater than 0.5 ng/mL Consistent with diagnosis of [place] 43 FASTING 12 HOUR 44 Desirable <150 Borderline high 150-199 High 200-499 Very High >500 45 Desirable <200 Borderline high 200-239 High >239 46 Low <40 Desirable: 40-60 High: >60 47 Desirable <100 Near Optimal 100-129 Borderline high 130-159 High 160-189 Very High >189 48 Because ethnic data is not always readily [...] 15-29 5 Kidney failure <15 (or dialysis) 49 FASTING 12 HOUR 50 Because ethnic data is not always readily [...] 15-29 5 Kidney failure <15 (or dialysis) 51 HDL Interpretation: Undesirable: High Risk: Less than 40 MG/DL Desirable: Low Risk: Greater than 60 MG/DL 52 LDL Interpretation: Low Risk Optimal Level: LDL Less than 100 MG/DL Near or Above Optimal: LDL 100-129 MG/DL Borderline High Risk: LDL 130-159 MG/DL High Risk: LDL 160-189 MG/DL Very High Risk: LDL Greater than 189 MG/DL 53 Fasting 54 Levels at the lower end of the range may be needed for symptomatic heart failure and levels at the higher end of the range for rate control. Procedures Date Code Description Status 12/24/2017 67906 EKG Tracing & Interpretation Completed 05/03/2017 39624 Stress Test Completed 05/03/2017 20035 Myocardial Perfusion Imaging Tomographic (Spect) Multiple Completed Studies 12/08/2016 10793 EKG Tracing & Interpretation Completed 10/15/2015 51021 Holter Monitor Review (24 hr)dr review & interp only Completed 10/08/2015 84626 ECG Monitor/Recording W/Visual Superimposition Scanning Completed 08/27/2015 94117 EKG Tracing & Interpretation Completed 08/27/2015 25375 EKG Tracing & Interpretation Completed 08/13/2015 21797 ECHO Stress Test Incl Perf Contiuous ekg Monitoring W/Phys Completed Superv 07/23/2015 83920 EKG Tracing & Interpretation Completed 03/22/2015 88225 EKG Tracing & Interpretation Completed 03/16/2014 43107 Carotid Doppler,Bilateral Completed 03/02/2014 53254 EKG Tracing & Interpretation Completed 12/30/2013 64150 Treadmill Interp/Report Only Completed 12/30/2013 89531 Stress Test Supervsn W/Out I/R Completed 12/30/2013 88890 EKG, Interpretation Only Completed 12/30/2013 35081 EKG, Interpretation Only Completed 11/10/2013 59922 EKG Tracing & Interpretation Completed 09/06/2013 54681 ECHO Transthoracic, Real-Time 2D With Doppler And Color Completed Flow 09/04/2013 01439 Stress Test Completed 08/23/2013 57352 EKG Tracing & Interpretation Completed 08/14/2013 64448 EKG, Interpretation Only Completed 08/11/2013 75542 Left Heart Cath. Incl S/I Coronaries, Angio S/I V Gram If Completed Done 08/11/2013 11892 Revascularization Chronic Total Occlusion Coronary Artery Completed 06/02/2013 08319 Trigger Finger Release Incision / Tendon Sheath Incision Completed 04/19/2013 57598 Rad Exam; Hand Comp Completed 03/10/2013 68562 EKG Tracing & Interpretation Completed 03/01/2013 03368 ECHO Transthoracic, Real-Time 2D With Doppler And Color Completed Flow 09/13/2012 89854 Carpal Tunnel Release Completed 08/04/2012 91529 Inject Tendon Sheath Or Ligament Aponeurosis Eg Plantar Completed Fascia 06/28/2012 17158 Carpal Tunnel Release Completed 06/23/2012 40517 Stress Test Completed 06/23/2012 56426 Myocardial Perfusion Imaging Tomographic (Spect) Multiple Completed Studies 06/21/2012 94752 EKG Tracing & Interpretation Completed 04/29/2012 66929 Nerve Conduction 07-08 Studies Completed 03/01/2012 27522 EKG Tracing & Interpretation Completed 08/08/2010 29469 EKG, Interpretation Only Completed Encounters Type Date Location Provider Dx Diagnosis Office Visit 01/18/2018 [facility] Venkatesh Light G40.209 Local-rel symptc 10:30a Services Of Michael Bonilla M.D. 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 premature depolarization Office Visit 08/27/2015 9:30a [facility] KADE Gibbons I25.119 Athscl heart Of Fine Unhairer disease of [place] cor art w unsp ang pctrs I25.2 Old myocardial infarction E78.2 Mixed hyperlipidemia 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 premature depolarization R07.9 Chest pain, unspecified Office Visit 07/23/2015 9:00a [facility] Heather Macias, I25.119 Athscl heart Of [facility] Yolanda disease of [place] cor art w unsp ang pctrs I73.9 Peripheral vascular disease, unspecified I25.2 Old myocardial infarction E78.2 Mixed hyperlipidemia R06.00 Dyspnea, unspecified Office Visit 04/10/2015 [facility] G40.209 Local-rel symptc 9:45a [facility] Yolanda Bonilla epi w cmplx prt Services Of [facility] seiz,not ntrct,w/o stat epi Office Visit 03/22/2015 [facility] Heather Macias, E78.2 Mixed 9:15a Cardiology Of Yolanda hyperlipidemia [facility] I25.10 Athscl heart disease of [place] coronary artery w/o ang pctrs I25.2 Old myocardial infarction 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 premature depolarization Office Visit 08/07/2014 [facility] Heather Macias, 272.2 Hyperlipidemia Mixed 9:45a Cardiology Of MEmily [facility] 414.01 Coronary Atherosclerosis Kashia 412 Myocardial Infarction Old 786.50 Pain Chest Unspec Office Visit 05/02/2014 9:45a [facility] Nikki Bellamy, 345.90 Epilepsy Unspec Services Of [facility] MANAGER DOCUMENT W/O Intractable 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 Office Visit 04/27/2014 [facility] Heather Macias, 272.2 Hyperlipidemia Mixed 9:30a Cardiology Of Yolanda [facility] 414.01 Coronary Atherosclerosis Kashia 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 Unspec Hospitalists 414.9 Ischemic Heart Disease Chronic Unspec 345.90 Epilepsy Unspec W/O Intractable Office Visit 12/29/2013 10:00a [facility] Nancy Light 786.50 Pain Chest Assoc,kirill Guo, N.PJayne Unspec Hospitalists 414.9 Ischemic Heart Disease Chronic Unspec 345.90 Epilepsy Unspec W/O Intractable Office Visit 11/10/2013 2:15p [facility] Heather Macias, 412 Myocardial Of Fine Unhairer M.D. Infarction Old 413.9 Angina Pectoris Other Unspec 272.2 Hyperlipidemia Mixed Office Visit 10/11/2013 10:15a [facility] Heather Macias, 414.9 Ischemic Heart Of Fine Unhairer M.D. 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 Intermediate Office Visit 08/13/2013 2:06p [facility] Chris Garcia 414.9 Ischemic Heart Of Michael Collado M.D. Disease Chronic Unspec 411.1 Coronary Syndrome Intermediate Office Visit 08/12/2013 1:33p [facility] Chris Garcia 411.1 Coronary Syndrome Of Michael Collado M.D. Intermediate 414.9 Ischemic Heart Disease Chronic Unspec Office Visit 08/11/2013 1:27p [facility] Chris D. 411.1 Coronary Syndrome Of Michael Collado M.D. 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 Hand [place] 727.03 Trigger Finger Acquired Office Visit 03/10/2013 [facility] Heather Macias, 414.01 Coronary 9:00a Cardiology Of M.D. 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 Infarction Old 786.09 Dyspnea & Respiratory Abnormalities Other 786.59 Pain Chest Other V72.81 Examination Preoperative Cardiovascular Office Visit 06/02/2012 11:15a [facility] Yadira Plaza, 354.0 Carpal Tunnel Services Of M.DJayne Syndrome C.M.A. 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 at [facility]07/19/2018 - Venkatesh Bonilla M.D.G40.209 Localization-related (focal) (partial) symptomatic epilepsyFollow up:6 monthsRecommendations:get your topamax level done about 2 weeks after you increase the doseZ79.899 Other long term care social worker (current) drug therapyRecommendations: increase your topamax to 150 mg in the AM and 2 at liepsB57.398 Other sequelae of cerebral infarction
--- OUTSIDE RECORDS SUMMARY | 2018-08-07 09:28 | XMS REPORT | Continuity of Care Document ---
:1960 External Reference #:[id number] Author Name Anish Letitia Care Team Providers Name Role Phone López Matt MD Primary Care Physician Unavailable Payers Date Identification Numbers Payment Provider Subscriber Effective: 2013 Policy Number: [id number] Medicare Blue Ppo Ludy Benedict Group Number: [id number] [address] PayID: [id number] [place] [address] Effective: 2012 Policy Number: [id number] Medicare Blue Ppo Ludy Benedict Expires: 2013 PayID: [id number] [address] [address] [place] [address] Effective: 2011 Policy Number: [id number] Medicare Blue Ppo Ludy Benedict Expires: 2012 PayID: [id number] [address] [address] [place] [address] Problems Active Problems Provider Date Coronary arteriosclerosis Heather Macias M.D. Onset: 03/10/2013 Mixed hyperlipidemia Heather Macias M.D. Onset: 03/10/2013 Carotid artery occlusion Heather Macias M.D. Onset: 04/27/2014 Old myocardial infarction Heather Macias M.D. Onset: 08/07/2014 Premature beats Heather Macias M.D. Onset: 03/22/2015 Atherosclerotic heart disease of [place] coronary Heather Macias M.D. Onset: artery with unspecified angina pectoris Family History Date Family Member(s) Observation Comments General Diabetes General Heart Disease General Cancer Mother Coronary Artery Disease (CAD) CA in 70s, Maternal Grandfather Coronary Artery Disease (CAD) multiple CA's, 95 yo Maternal Grandmother Coronary Artery Disease (CAD) Multiple CA's Social History Type Date Description Comments Sex Unknown Marital Status Single Lives With Boyfriend Occupation Disabled Tobacco Use Start: Unknown End: Former Cigarette Smoker Quit 2005 Unknown ETOH Use Denies alcohol use Recreational Drug Use Denies Drug Use Tobacco Use Start: Unknown End: Patient is a former Quit 2005 Unknown smoker Tobacco Use Start: Unknown End: former Cigarette smoker Unknown Smoking Status Reviewed: 08/05/18 former Cigarette smoker Exercise Type/Frequency Exercises regularly [...] Co-Enzyme Q10 po qd Unknown 100mg Capsules [place] 3 1 po qd. 100caps Unknown 1000mg [...] 08/23/2013 - Stockings to moderate M.D. 11/08/2013 [facility] compression. Dx: hypotension, headache, orthostatic dizzyness. Post CA and post CVA Brilinta 1 tab by mouth 60tabs 410.72 Heather Macias, 08/23/2013 - 90mg Tablets twice a day M.D. 08/07/2014 Plavix 1 by mouth every 30tabs 410.72 Chris DJayne 08/14/2013 - 75mg Tablets day Brand, M.D. 08/23/2013 Maxatawny 1-2 by mouth q4-6 30tabs Yadira 05/29/2013 - 5-325mg Tablets hour as needed Yolanda Plaza 08/22/2013 pain [place] 1-2 po q4-6h prn 30tabs Yadira 06/22/2012 [...] - 15mg Yolanda Bonilla 05/29/[address] Topbassam 1 mg bid for 1 wk 240tabs [...] Date Inj, Regadenoson, 0.1 MG Cem Pereyra, [facility] 05/03/2017 Injection Technetium TC 99M Cem Pereyra, DO [facility] 05/03/2017 Tetrofosmin, Per Unit Dose Up To 40 Millicuries Injection Depomedrol 80MG Yadira Plaza M.D. 08/04/2012 Injection Technetium TC 99M Heather Macias M.D. 06/23/2012 Tetrofosmin, Per Unit Dose Up To 40 Millicuries Injection Vital Signs Date Vital Result Comment 08/05/2018 10:09am Height 58.25 inches 4'10.25" Weight 124.12 lb no shoes Heart Rate 68 /min BP Systolic Sitting 120 mmHg Rue, regular cuff BP Diastolic Sitting 78 mmHg Rue, regular cuff BP Systolic Standing 115 mmHg Rue, regular cuff BP Diastolic Standing 70 mmHg Rue, regular cuff BMI (Body Mass Index) 25.7 kg/m2 Ejection Fraction 50% echo from 08/03/18 08/05/2018 10:01am Height 58.25 inches 4'10.25" Weight 124.12 lb no shoes BMI (Body Mass Index) 25.7 kg/m2 07/19/2018 10:47am Height 58.25 inches 4'10.25" Weight [...] Result H/L Range Note Lipid Profile 03/22/2018 [facility] Triglycerides 189 mg/dL 1 (Trig/Chol/HDL) [address] [place], [place] [address] [phone] Cholesterol 168 mg/dL 2 HDL Cholesterol 39.0 mg/dL 3 LDL Cholesterol 91 mg/dL 4 Lipid Profile 03/22/2018 [facility] Triglycerides 189 mg/dL 5 (Trig/Chol/HDL) [address] [place], [place] [id number] [phone] Cholesterol 168 mg/dL 6 HDL Cholesterol 39.0 mg/dL 7 LDL Cholesterol 91 mg/dL 8 Laboratory test 03/22/2018 [facility] Alt (SGPT) 20 U/L N 7- 52 9 finding [address] [place], [place] [id number] [phone] FLP/Alt Panel 03/22/2018 [facility] Alt 20 U/L N 7-52 10 [address] [place], [place] [address] [phone] Lipid Profile 12/27/2017 [facility] Triglycerides 141 mg/dL 11 (Trig/Chol/HDL) [address] [place], [place] [id number] [phone] Cholesterol 161 mg/dL 12 HDL Cholesterol 41.2 mg/dL 13 LDL Cholesterol 92 mg/dL 14 Comp Metabolic Panel 12/27/2017 [facility] Sodium 142 mmol/L N 135-145 [address] [place] [address] [phone] Potassium 4.0 mmol/L N 3.5-5.0 Chloride 111 [...] Egfr Non- 71.4 >60 Egfr 86.3 >60 15 Laboratory test 12/27/2017 [facility] Creatine 72 U/L N 10- 223 finding [address] [facility] Kinase(CK) [place] [address] [phone] Digoxin 1.1 ng/ml N 0.8-2.0 Basic Metabolic Panel 08/19/2017 [facility] Sodium 141 mmol/L N 135-145 [address] [place] [address] [phone] Potassium 4.0 mmol/L N 3.5-5.0 Chloride 109 mmol/L N 101-111 Co2 Carbon Dioxide 24 mmol/L N 22-32 Anion Gap 8 mmol/L N 2-11 Glucose 130 mg/dL High 70-100 Blood Urea Nitrogen 8 mg/dL N 6-24 Creatinine 0.75 mg/dL N 0.51-0.95 BUN/Creatinine Ratio 10.7 N 8-20 Calcium 8.7 mg/dL N 8.6-10.3 Egfr Non- 79.1 >60 Egfr 95.7 >60 16 Laboratory test 08/19/2017 [facility] Magnesium 2.0 mg/dL N 1.9-2.7 finding [address] [place] [address] [phone] Digoxin 0.8 ng/ml N 0.8-2.0 Laboratory test finding 08/05/2017 [facility] Magnesium <pending > [address] [place] [address] [phone] Digoxin <pending> Basic Metabolic Panel 06/28/2017 [facility] Sodium 140 mmol/L N 139-145 [address] [place] [address] [phone] Potassium 4.2 mmol/L N 3.5-5.0 Chloride 107 mmol/L N 101-111 Co2 Carbon Dioxide 26 mmol/L N 22-32 Anion Gap 7 mmol/L N 2-11 Glucose 137 mg/dL High 70-100 Blood Urea Nitrogen 11 mg/dL N 6-24 Creatinine 0.78 mg/dL N 0.51-0.95 BUN/Creatinine Ratio 14.1 N 8-20 Calcium 9.2 mg/dL N 8.6-10.3 Egfr Non- 75.6 >60 Egfr 97.2 >60 17 Laboratory test 06/28/2017 [facility] Magnesium 2.1 mg/dL N 1.9-2.7 finding [address] [place] [address] [phone] Laboratory test 06/11/2017 [facility] Magnesium <pending> finding [address] [place] [address] [phone] Lipid Profile 12/07/2016 [facility] Triglycerides 158 mg/dL N 18 (Trig/Chol/HDL) [address] [place] [address] [phone] Cholesterol 147 mg/dL N 19 HDL Cholesterol 43.3 mg/dL N 20 LDL Cholesterol 72 mg/dL N 21 Laboratory test 12/07/2016 [facility] Apolipoprotein B 77 mg/dL N 22 finding [address] [place] [address] [phone] Lipoprotein 12/07/2016 [facility] Lipoprotein 97 mg/dL Abnormal <=3 23 Profile/[place] [address] Profile Apo a 0 Lp([place]) [place] [address] [phone] CBC Auto Diff 07/13/2016 [facility] White Blood Count 7.5 N 3.[address] 10^3/uL -10 [place] [address] .8 [phone] Red Blood Count 4.59 10^6/uL N 4.0-5.4 [...] % 0 N Basic Metabolic Panel 07/13/2016 [facility] Sodium 140 mmol/L N 133-145 [address] [place] [address] [phone] Potassium 4.2 mmol/L N 3.5-5.0 Chloride 111 mmol/L N 101-111 Co2 Carbon Dioxide 24 mmol/L N 22-32 Anion Gap 5 mmol/L N 2-11 Glucose 121 mg/dL High 70-100 Blood Urea Nitrogen 13 mg/dL N 6-24 Creatinine 0.88 mg/dL N 0.51-0.95 BUN/Creatinine Ratio 14.8 N 8-20 Calcium 8.7 mg/dL N 8.6-10.3 Egfr Non- 66.0 N >60 Egfr 84.9 N >60 24 Lipid Profile 07/13/2016 [facility] Triglycerides 139 mg/dL N 25 (Trig/Chol/HDL) [address] [place] [address] [phone] Cholesterol 135 mg/dL N 26 HDL Cholesterol 32.8 mg/dL N 27 LDL Cholesterol 74 mg/dL N 28 Liver Function 07/13/2016 [facility] Total Protein 6.0 g/dL Low 6.4-8.9 Panel [address] [place] [address] [phone] Albumin 3.9 g/dL N 3.2-5.2 Globulin 2.1 g/dL N 2-4 Albumin/Globulin Ratio 1.9 N 1-3 Total Bilirubin 0.60 mg/dL N 0.2-1.0 Direct Bilirubin 0.10 mg/dL N 0.03-0.18 Indirect Bilirubin 0.5 mg/dL N 0.3-1.0 Alkaline Phosphatase 52 U/L N 34-104 Alt 12 U/L N 7-52 Ast 12 U/L Low 13-39 Laboratory test 07/02/2015 [facility] Digoxin 1.4 ng/ml N 0.8- 2.0 [address] [place] [address] [phone] Laboratory test 07/02/2015 [facility] Digoxin 1.4 ng/ml N 0.8- 2.0 [address] [place] [address] [phone] Laboratory test 07/02/2015 [facility] Ast (Sgot) 13 U/L N 13- [address] [place] [address] [phone] CRP High Sensitivity 1.00 mg/L N 31 Creatine Kinase(CK) 52 U/L N 10-223 Lipoprotein 07/02/2015 [facility] Lipoprotein 88 mg/dL Abnormal <=30 32 Profile/[place] [address] Profile Apo a Lp(a) [place], [place] [address] [phone] Lipoprotein 07/02/2015 [facility] Lipoprotein 88 mg/dL Abnormal <=30 33 Profile/[place] [address] Profile Apo a Lp(a) [place], [place] [id number] [phone] Lipid Profile 07/02/2015 [facility] Triglycerides 168 N 34 (Trig/Chol/HDL) [address] mg/dL [place], [place] [id number] [phone] Cholesterol 142 mg/dL N 35 HDL Cholesterol 37.7 mg/dL N 36 LDL Cholesterol 71 mg/dL N 37 Laboratory test 04/30/2014 [facility] LDL Cholesterol 194 mg/dL N [address] Direct [place], [place] [address] [phone] Urinalysis Profile 08/29/2013 [facility] Urine Color Yellow N [address] [place] [address] [phone] Urine Appearance Cloudy N Urine Specific [place] 1.006 Low 1.010-1.030 Urine pH 7.0 N [...] Present Abnormal Absent Urine Culture And 08/29/2013 [facility] Urine Culture (SEE NOTE ) [address] [place] [address] [phone] CKMB 08/11/2013 [facility] CKMB ng/mL 1.2 ng/mL N 0.6-[address]3 [place] [address] [phone] Laboratory test 08/11/2013 [facility] Troponin I 0.03 ng/mL N <0.03 40 finding [address] [place] [address] [phone] Digoxin 1.2 ng/ml N 0.8-2.0 Laboratory test 08/11/2013 [facility] Magnesium 2.1 mg/dL N 1.9-2.[address] [place] [address] [phone] Comp Metabolic 08/11/2013 [facility] Sodium 138 mmol/L N 133- 145 Panel [address] [place] [address] [phone] Potassium 3.9 mmol/L N 3.7-5.6 Chloride 106 [...] 65.0 N >60 Egfr 83.6 N >60 41 Laboratory test 08/11/2013 [facility] Activated 27.0 seconds N 24.0-36.[address] [place] [address] Thrombo Time [phone] B Type Natriuretic Peptide 23 pg/mL N 42 Inr/Protime 08/11/2013 [facility] Inr 0.95 N 0.85-1.[address] [place], [place] [address] [phone] CBC Auto Diff 08/11/2013 [facility] White Blood 9.0 10^3/uL N 4.8-10.[address] [place] [address] [phone] Red Blood Count 4.39 10^6/uL N 4.0-5.4 [...] Nucleated Red Blood Cells % 0.1 N Laboratory 04/17/2013 [facility] Hepatitis C Nonreactive Nonreactive 43 test finding [address] [place] [address] [phone] Lipid Profile 04/17/2013 [facility] Triglycerides 177 mg/dL 44 (Trig/Chol/HD [address] L) [place] [address] [phone] Cholesterol 210 mg/dL 45 HDL Cholesterol 32.8 mg/dL 46 LDL Cholesterol 142 mg/dL 47 Basic Metabolic Panel 04/17/2013 [facility] Sodium 139 mmol/L 133-145 [address] [place] [address] [phone] Potassium 4.0 mmol/L 3.7-5.6 Chloride 110 mmol/L 101-111 Co2 Carbon Dioxide 25 mmol/L 22-32 Anion Gap 4 mmol/L 2-11 Glucose 111 mg/dL High 70-100 Blood Urea Nitrogen 10 mg/dL 6-24 Creatinine 0.88 mg/dL 0.51-0.95 BUN/Creatinine Ratio 11.4 8-20 Calcium 8.9 mg/dL 8.6-10.3 Egfr Non- 66.7 >60 Egfr 85.8 >60 48 Laboratory test 04/17/2013 [facility] Digoxin 0.9 ng/ml 0.8- 2.0 49 finding [address] [place] [address] [phone] Laboratory test 03/14/2012 [facility] Digoxin 0.6 ng/mL 0.5- 1.5 50 finding [address] [place] [address] [phone] Laboratory test 03/14/2012 [facility] Creatine Kinase 77 U/L 0-200 51 finding [address] [place] [address] [phone] Lipid Profile 03/14/2012 [facility] Triglycerides 150 mg/dL 40-200 (Trig/Chol/HDL) [address] [place] [address] [phone] Cholesterol 268 mg/dL High Less than 200 HDL Cholesterol 36 mg/dL Low 40-60 52 Cholesterol/HDL Ratio 7.4 Average High 1-4.44 LDL Cholesterol 202.0 mg/dL High Less Than 100 53 Comp Metabolic Panel 03/14/2012 [facility] Sodium 137 mmol/L 133-145 [address] [place] [address] [phone] Potassium 4.3 mmol/L 3.5-5.0 Chloride 104 mmol/L [...] Egfr Non- 65.5 >60 Egfr 84.2 >60 54 1 Desirable: <150 Borderline High: 150-199 High: 200-499 Very High: >500 2 Desirable: <200 Borderline High: 200-239 High: >239 3 Low: <40 Desirable: 40-60 High: >60 4 Desirable: <100 Near Optimal: 100-129 Borderline High: 130-159 High: 160-189 Very High: >189 5 Desirable: <150 Borderline High: 150-199 High: 200-499 Very High: >500 6 Desirable: <200 Borderline High: 200-239 High: >239 7 Low: <40 Desirable: 40-60 High: >60 8 Desirable: <100 Near Optimal: 100-129 Borderline High: 130-159 High: 160-189 Very High: >189 9 In Feburary Copy Result to: TRINI MCDANIEL ([id number]) 10 In Feburary Copy Result to: TRINI MCDANIEL ([id number]) 11 Desirable: <150 Borderline High: 150-199 High: 200-499 Very High: >500 12 Desirable: <200 Borderline High: 200-239 High: >239 13 Low: <40 Desirable: 40-60 High: >60 14 Desirable: <100 Near Optimal: 100-129 Borderline High: 130-159 High: 160-189 Very High: >189 15 Because ethnic data is not always readily [...] 15-29 5 Kidney failure <15 (or dialysis) 16 Because ethnic data is not always [...] 5 Kidney failure <15 (or dialysis) 18 Desirable: <150 Borderline High: 150-199 High: 200-499 Very High: >500 19 Desirable: <200 Borderline High: 200-239 High: >239 20 Low: <40 Desirable: 40-60 High: >60 21 Desirable: <100 Near Optimal: 100-129 Borderline High: 130-159 High: 160-189 Very High: >189 22 REFERENCE VALUE Desirable: <90 Above Desirable: 90-99 Borderline high: 100-119 High: 120-139 Very high: > sv=012 Test Performed by: [address] [address] 23 Elevated Lp(a). Lp(a) is prothrombotic and proatherogenic. [...] cardiovascular disease risk refinement. Test Performed by: [address] [address] 24 Because ethnic data is not always readily [...] 15-29 5 Kidney failure <15 (or dialysis) 25 Desirable <150 Borderline high 150-199 High 200-499 Very High >500 26 Desirable <200 Borderline high 200-239 High >239 27 Low <40 Desirable: 40-60 High: >60 28 Desirable: <100 mg/dL Near Optimal: 100-129 mg/dL Borderline High: 130-159 mg/dL High: 160-189 mg/dL Very High: >189 mg/dL 29 Copy Result to: HEATHER MACIAS ([id number]) 30 Copy Result to: HEATHER MACIAS ([id number]) 31 Low risk: <1.00 Average risk: 1.00-3.00 High risk: >3.00 32 Elevated Lp(a). Lp(a) is prothrombotic and proatherogenic. [...] cardiovascular disease risk refinement. Test Performed by: [place] [address] Media Relations Director: Trini Ivan II, M.D., Ph.D. 33 Elevated Lp(a). Lp(a) is prothrombotic and proatherogenic. [...] cardiovascular disease risk refinement. Test Performed by: [place] [address] Media Relations Director: Trini Ivan II, M.D., Ph.D. 34 Desirable <150 Borderline high 150-199 High 200-499 Very High >500 35 Desirable <200 Borderline high 200-239 High >239 36 Low <40 Desirable: 40-60 High: >60 37 Desirable: <100 mg/dL Near Optimal: 100-129 mg/dL Borderline High: 130-159 mg/dL High: 160-189 mg/dL Very High: >189 mg/dL 38 Desirable: <100 mg/dL Near Optimal: 100-129 mg/dL Borderline High: 130-159 mg/dL High: 160-189 mg/dL Very High: >189 mg/dL 39 RUN DATE: 08/31/13 [facility] LAB LIVE PAGE 1 RUN TIME: [address] [place] [address] Specimen Inquiry Name: LUDY BENEDICT : [address]: Sonya Johnson MD Acct: [id number] Unit: [id number] AGE: 53 Location: ED Re08/29/13 SEX: F Status: DEP ER SPEC: [id number] LEROY: 08/29/13-[address]: Ludy BRAUN REQ: [id number] RECD: 08/29/13 STATUS: COMP SONJA DR: [facility] López Macias MD _ SOURCE: URINE SPDESC: ORDERED: Urine Culture Procedure Result Verified Site Urine Culture Final 08/31/13- 0843 ML Organism 1 KLEBSIELLA PNEUMONIAE [place] Count >100,000 (Many) CFU/ML 1. KLEBSIELLA PNEUMONIAE [...] performed at Main Lab DEPARTMENT OF PATHOLOGY, [address] [place] [address] Kulwant Hernandez M.D. Director [facility] # [id number] 40 Result TnIDx:0.03 Called to [id number] at: 21:38:41 by:[id number] Read back by: TUSHAR Reference Range and Interpretation: TnI (ng/mL) Interpretation Less Than 0.03 ng/mL Not supportive of diagnosis of CA 0.03 - 0.50 ng/mL Indeterminate: suggest serial studies if clinically indicated. Greater than 0.5 ng/mL Consistent with diagnosis of CA 41 Because ethnic data is not always readily [...] 15-29 5 Kidney failure <15 (or dialysis) 42 >100 to <200 pg/mL: likely compensated congestive heart failure (CHF) 200 to 400 pg/mL: likely moderate CHF >400 pg/mL: likely moderate to severe CHF [facility] 43 FASTING 12 HOUR 44 Desirable <150 [...] (or dialysis) 49 FASTING 12 HOUR 50 Levels at the lower end of the range may be needed for symptomatic heart failure and levels at the higher end of the range for rate control. 51 Fasting 52 HDL Interpretation: Undesirable: High Risk: Less than 40 MG/DL Desirable: Low Risk: Greater than 60 MG/DL 53 LDL Interpretation: Low Risk Optimal Level: LDL Less than 100 MG/DL Near or Above Optimal: LDL 100-129 MG/DL Borderline High Risk: LDL 130-159 MG/DL High Risk: LDL 160-189 MG/DL Very High Risk: LDL Greater than 189 MG/DL 54 Because ethnic data is not always readily [...] 15-29 5 Kidney failure <15 (or dialysis) Procedures Date Code Description Status 08/05/2018 23431 EKG Tracing & Interpretation Completed 08/03/2018 48156 ECHO Transthoracic, Real-Time 2D With Doppler And Color Completed Flow 12/24/2017 17565 EKG Tracing & Interpretation Completed 05/03/2017 91603 Stress Test Completed 05/03/2017 96745 Myocardial Perfusion Imaging Tomographic (Spect) Multiple Completed Studies 12/08/2016 81012 EKG Tracing & Interpretation Completed 10/15/2015 15284 Holter Monitor Review (24 hr)dr review & interp only Completed 10/08/2015 44091 ECG Monitor/Recording W/Visual Superimposition Scanning Completed 08/27/2015 16608 EKG Tracing & Interpretation Completed 08/27/2015 99672 EKG Tracing & Interpretation Completed 08/13/2015 54109 ECHO Stress Test Incl Perf Contiuous ekg Monitoring W/Phys Completed Superv 07/23/2015 67490 EKG Tracing & Interpretation Completed 03/22/2015 72667 EKG Tracing & Interpretation Completed 03/16/2014 32290 Carotid Doppler,Bilateral Completed 03/02/2014 96703 EKG Tracing & Interpretation Completed 12/30/2013 57407 Treadmill Interp/Report Only Completed 12/30/2013 31902 Stress Test Supervsn W/Out I/R Completed 12/30/2013 68372 EKG, Interpretation Only Completed 12/30/2013 92743 EKG, Interpretation Only Completed 11/10/2013 75574 EKG Tracing & Interpretation Completed 09/06/2013 96330 ECHO Transthoracic, Real-Time 2D With Doppler And Color Completed Flow 09/04/2013 89516 Stress Test Completed 08/23/2013 60276 EKG Tracing & Interpretation Completed 08/14/2013 11735 EKG, Interpretation Only Completed 08/11/2013 10971 Left Heart Cath. Incl S/I Coronaries, Angio S/I V Gram If Completed Done 08/11/2013 56056 Revascularization Chronic Total Occlusion Coronary Artery Completed 06/02/2013 86896 Trigger Finger Release Incision / Tendon Sheath Incision Completed 04/19/2013 56969 Rad Exam; Hand Comp Completed 03/10/2013 19360 EKG Tracing & Interpretation Completed 03/01/2013 38963 ECHO Transthoracic, Real-Time 2D With Doppler And Color Completed Flow 09/13/2012 60297 Carpal Tunnel Release Completed 08/04/2012 03735 Inject Tendon Sheath Or Ligament Aponeurosis Eg Plantar Completed Fascia 06/28/2012 48328 Carpal Tunnel Release Completed 06/23/2012 73072 Stress Test Completed 06/23/2012 68724 Myocardial Perfusion Imaging Tomographic (Spect) Multiple Completed Studies 06/21/2012 80288 EKG Tracing & Interpretation Completed 04/29/2012 99326 Nerve Conduction 07-08 Studies Completed 03/01/2012 56071 EKG Tracing & Interpretation Completed 08/08/2010 79486 EKG, Interpretation Only Completed Encounters Type Date Location Provider Dx Diagnosis Office Visit 07/19/2018 [facility] Venkatesh Light G40.209 Local-rel symptc 10:30a Services Of Michael Bonilla M.D. epi w cmplx prt seiz,not ntrct,w/o stat epi Z79.899 [facility] (current[facility] drug therapy I69.398 Other sequelae of cerebral infarction Office Visit 01/18/2018 10:30a [facility] Venkatesh Light G40.209 Local- rel Services Of Michael Bonilla M.D. symptc epi w cmplx prt seiz,not ntrct,w/o stat epi L98.9 Disorder of the skin and subcutaneous tissue, unspecified Office Visit 12/24/2017 2:20p [facility] Heather Macias, I25.119 Athscl heart Of Michael FabianD. disease of [place] cor art w unsp ang pctrs I25.2 Old myocardial infarction E78.2 Mixed hyperlipidemia 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 premature depolarization I63.9 Cerebral infarction, unspecified Office Visit 08/05/2017 8:30a [facility] Amarilis SJayne R07.9 Chest pain, Of [employer] Work[employer] Foster, N.P. 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 unspecified I25.2 Old myocardial infarction I25.119 Athscl heart disease of [place] cor art w unsp ang pctrs E78.2 Mixed hyperlipidemia 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 premature depolarization Office Visit 12/08/2016 9:45a [facility] Heather Macias, I25.119 Athscl heart Of [employer] Work[employer] Brenda.D. disease of [place] cor art w unsp ang pctrs E78.2 Mixed hyperlipidemia 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 premature depolarization Office Visit 07/15/2016 [facility] Venkatesh Light G40.209 Local-rel 9:45a Clinic Yolanda Bonilla symptc epi w cmplx prt seiz,not ntrct,w/o stat epi I69.398 Other sequelae of cerebral infarction Office Visit 12/17/2015 [place] Heather Macias, 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 3:15p Cardiology Of MEmily premature [employer] Worker depolarization I25.10 Athscl heart disease of [place] coronary artery w/o ang pctrs E78.2 Mixed hyperlipidemia I25.2 Old myocardial infarction R06.02 Shortness of breath Office Visit 09/27/2015 9:15a [facility] KADE Gibbons I25.119 Athscl heart Of [employer] Worker disease of [place] cor art w unsp ang pctrs E78.2 Mixed hyperlipidemia R07.9 Chest pain, unspecified 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 premature depolarization Office Visit 08/27/2015 9:30a [facility] KADE Gibbons I25.119 Athscl heart Of [employer] Worker disease of [place] cor art w unsp ang pctrs I25.2 Old myocardial infarction E78.2 Mixed hyperlipidemia 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 premature depolarization R07.9 Chest pain, unspecified Office Visit 07/23/2015 9:00a [facility] Heather Macias, I25.119 Athscl heart Of [employer] Worker M.D. disease of [place] cor art w unsp ang pctrs I73.9 Peripheral vascular disease, unspecified I25.2 Old myocardial infarction E78.2 Mixed hyperlipidemia R06.00 Dyspnea, unspecified Office Visit 04/10/2015 [facility] Venkatesh Light G40.209 Local-rel symptc 9:45a Neurologic Yolanda Bonilla epi w cmplx prt Services Of [employer] Worker seiz,not ntrct,w/o stat epi Office Visit 03/22/2015 Dayan Macias, E78.2 Mixed 9:15a Cardiology Of MEmily hyperlipidemia [employer] Worker I25.10 Athscl heart disease of [place] coronary artery w/o ang pctrs I25.2 Old myocardial infarction 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 premature depolarization Office Visit 08/07/2014 [place] Heather Macias, 272.2 Hyperlipidemia Mixed 9:45a Cardiology Of Yolanda [employer] Worker 414.01 Coronary Atherosclerosis [place] 412 Myocardial Infarction Old 786.50 Pain Chest Unspec Office Visit 05/02/2014 9:45a [place] [facility] Nikki Gnadt, 345.90 Epilepsy Unspec Services Of [facility] 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 W/O Intractable 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 Office Visit 04/27/2014 [place] Heather Macias, 272.2 Hyperlipidemia Mixed 9:30a Cardiology Of M.Radha [facility] 414.01 Coronary Atherosclerosis [place] 433.11 Occlusion & Stenosis Carotid Artery Cerebral Infarction Office Visit 03/02/2014 9:15a [place] [facility] Corazon Dubon, 272.2 Hyperlipidemia Mixed Of [facility] [place] 410.72 Myocardial Infarc Acute Subendocardial Subseq Episode Care 434.11 Cerebral Embolism W/ Cerebral Infarc 438.89 Cerebrovascular Disease Late Effect Other 414.01 Coronary Atherosclerosis [place] Office Visit 12/30/2013 10:01a [place] [facility] Amarilis S. 786.50 Pain Chest Assoc,pc Brant, N.P. Unspec Hospitalists 414.9 Ischemic Heart Disease Chronic Unspec 345.90 Epilepsy Unspec W/O Intractable Office Visit 12/29/2013 10:00a [facility] Amarilis S. 786.50 Pain Chest Assoc,pc Brant, N.P. Unspec Hospitalists 414.9 Ischemic Heart Disease Chronic Unspec 345.90 Epilepsy Unspec W/O Intractable Office Visit 11/10/2013 2:15p [place] [facility] Heather Macias, 412 Myocardial Of [facility] M.D. Infarction Old 413.9 Angina Pectoris Other Unspec 272.2 Hyperlipidemia Mixed Office Visit 10/11/2013 10:15a [place] [facility] Heather Macias, 414.9 Ischemic Heart Of [employer] Worker M.D. 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 Intermediate Office Visit 08/13/2013 2:06p [place] [facility] Chris D. 414.9 Ischemic Heart Of Michael Collado M.D. Disease Chronic Unspec 411.1 Coronary Syndrome Intermediate Office Visit 08/12/2013 1:33p [place] [facility] Chris Radha 411.1 Coronary Syndrome Of Michael Collado M.D. Intermediate 414.9 Ischemic Heart Disease Chronic Unspec Office Visit 08/11/2013 1:27p [place] [facility] Chris Radha 411.1 Coronary Syndrome Of Michael Collado M.D. Intermediate 414.9 Ischemic Heart Disease Chronic Unspec 786.50 Pain Chest Unspec Office Visit 05/03/2013 Bhanu Light 345.40 Local-Related 2:45p Neurologic Yolanda Bonilla Epilepsy W/O Services Of [facility] Mention Of Intractable Epilepsy 438.89 Cerebrovascular Disease Late Effect Other Office Visit 04/19/2013 8:15a Orthopedic Yadira Plaza, 719.44 Pain Joint Services Of [facility] AT M.[facility] 727.03 Trigger Finger Acquired Office Visit 03/10/2013 [place] Heather Macias, 414.01 Coronary 9:00a Cardiology Of Yolanda Atherosclerosis [facility] [place] 272.2 Hyperlipidemia Mixed Office Visit 11/01/2012 Bhanu Light 345.40 Local-Related 2:45p Neurologic Yolanda Bonilla Epilepsy W/O Services Of [facility] Mention Of Intractable Epilepsy 438.89 Cerebrovascular Disease Late Effect Other Office Visit 06/21/2012 12:45p [place] [facility] Heather Macias, 412 Myocardial Of Michael Guerrero Infarction Old 786.09 Dyspnea & Respiratory Abnormalities Other 786.59 Pain Chest Other V72.81 Examination Preoperative Cardiovascular Office Visit 06/02/2012 11:15a Orthopedic Yadira Plaza, 354.0 Carpal Tunnel Services Of Yolanda Syndrome C.M.A. Office Visit 04/29/2012 1:00p Bhanu Light 354.0 Carpal Tunnel Services Of Michael Bonilla M.D. Syndrome 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 Office Visit 03/16/2012 [place] Venkatesh S. 345.40 Local-Related 1:45p Neurologic Yolanda Bonilla Epilepsy W/O Services Of [facility] Mention Of Intractable Epilepsy 438.89 Cerebrovascular Disease Late Effect Other 354.0 Carpal Tunnel Syndrome Office Visit 03/01/2012 8:15a [place] [facility] Heather Macias, 412 Myocardial Of [facility] M.D. 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 at [place] [facility]01/17/2019 8:45 am - Venkatesh Bonilla M.D. at [place] [facility]08/05/2018 - Heather Macias M.D.M79.606 Pain in leg, unspecifiedNew Labs:Creatine Kinase(CK), Ordered: 08/05/18Erythrocyte Sed Rate, Ordered: 08/05/18LDL Cholesterol Direct, Ordered: 08/05/18New Orders:PVR And Pressures-Single Level, Bilateral, Ordered: 08/05/18R06.02 Shortness of breathNew Orders:Stress Test, Exercise Nuclear, Ordered: 08/05/18I25.2 Old myocardial infarctionComments:Echo showed good strength, very small infarct.Pressure in the heart in up, might contribute to symptoms (LVEDP=left ventricular end diastolic pressure).Recommendations:Plan: stress test. 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
[2018-08-07 09:40] VITALS: BP 109/63
--- NOTE | 2018-08-07 09:55 | UC ---
UC General HPI - HPI Summary HPI Summary: pt c/o urinary frequency, hesitancy and burning with urination. also c/o bladder pressure. denies fever, flank pain and vaginal discharge. drinking lots of water and cranberry juice. - History of Current Complaint Chief Complaint: UCGU Stated Complaint: URINARY COMPLAINT Time Seen by Provider: 08/07/18 09:33 Hx Obtained From: Patient Onset/Duration: Gradual Onset Pain Intensity: 4 Aggravating: nothing Alleviating: nothing Associated Signs & Symptoms: Positive: Abdominal Pain - "bladder pressure". Negative: Diarrhea, Nausea, Vomiting - Allergy/Home Medications Allergies/Adverse Reactions: Allergies Allergy/AdvReac Type Severity Reaction Status Date / Time atorvastatin [From Lipitor] Allergy ukn Verified 08/07/18 09:33 clopidogrel [From Plavix] Allergy unk Verified 08/07/18 09:33 ezetimibe [From Vytorin] Allergy unk Verified 08/07/18 09:33 Iodinated Contrast- Oral and Allergy Hives Verified 08/07/18 09:33 IV Dye latex Allergy Rash Verified 08/07/18 09:33 levetiracetam [From Keppra] Allergy unk Verified 08/07/18 09:33 metoprolol [From Toprol XL] Allergy unk Verified 08/07/18 09:33 niacin Allergy unk Verified 08/07/18 09:33 [From Niaspan Extended-Release] nitroglycerin Allergy Unknown Verified 08/07/18 09:33 Reaction Details oxcarbazepine Allergy Unknown Verified 08/07/18 09:33 Reaction Details phenytoin [From Dilantin] Allergy Unknown Verified 08/07/18 09:33 Reaction Details rosuvastatin [From Crestor] Allergy Unknown Verified 08/07/18 09:33 Reaction Details simvastatin [From Vytorin] Allergy unk Verified 08/07/18 09:33 ticagrelor Allergy Unknown Verified 08/07/18 09:33 Reaction Details TAPE Allergy Severe Rash Uncoded 08/07/18 09:33 iv contrast Allergy hives Uncoded 08/07/18 09:33 difficulty breathing Home Medications: Home Medications Calcium Carb, Citrate/Vit D3 [Calcium+D3 Gradual Releas] 1 tab PO DAILY [History Confirmed 08/07/18] PMH/Surg Hx/FS Hx/Imm Hx Cardiovascular History: Cardiac Disease GI/ History: Gastroesophageal Reflux Neurological History: CVA, Seizures - Surgical History Surgical History: Yes Surgery Procedure, Year, and Place: 1975 RT INGUINAL HERNIA PENDING S[facility] TO [facility],1977 C SECTION [facility], 1978 C SECTION [facility], 1981 C SECTION [facility] 1983 C SE[facility], 2005 2 CARDIAC STENTS [employer]-2014 2 STENTS [facility]. 2013 LEFT CARPAL TUNNEL RELEASE, [facility], 2013-RIGHT CARPAL TUNNEL RELEASE-[facility]. 2013 - Finger surgery (trigger finger) - Family History Known Family History: Positive: Cardiac Disease Negative: Diabetes - Social History Alcohol Use: None Substance Use Type: None Smoking Status (MU): Former Smoker Type: Cigarettes Amount Used/How Often: 1 PPD X 32 YEARS Length of Time of Smoking/Using Tobacco: Quit 12 years ago When Did the Patient Quit Smoking/Using Tobacco: 2005 - Immunization History Most Recent Influenza Vaccination: November Most Recent Tetanus Shot: 2005 Most Recent Pneumonia Vaccination: 2010 Review of Systems All Other Systems Reviewed And Are Negative: Yes Constitutional: Negative: Fever, Chills Gastrointestinal: Negative: Vomiting, Diarrhea, Nausea Genitourinary: Positive: Dysuria, Frequency, Urgency. Negative: Hematuria, Vaginal/Penile Discharge Physical Exam Triage Information Reviewed: Yes Appearance: Well-Appearing Vital Signs: Initial Vital Signs Temp 97.4 F 08/07/18 09:35 Pulse 50 08/07/18 09:35 Resp 14 08/07/18 09:35 BP 109/63 08/07/18 09:35 Pulse Ox 100 08/07/18 09:35 Vital Signs Reviewed: Yes Eyes: Positive: Conjunctiva Clear Neck: Positive: Supple Respiratory: Positive: Lungs clear, Normal breath sounds Cardiovascular: Positive: RRR, No Murmur Abdomen Description: Positive: Nontender, No Organomegaly, Soft. Negative: CVA Tenderness (R), CVA Tenderness (L) Bowel Sounds: Positive: Present Musculoskeletal: Positive: ROM Intact Neurological: Positive: Alert Psychological: Positive: Age Appropriate Behavior Skin Exam: Normal Diagnostics - Laboratory Lab Results: u/a= trace blood and leukocytes with culture pending Course/Dx - Diagnoses Provider Diagnosis: UTI (urinary tract infection) Discharge - Sign-Out/Discharge Documenting (check all that apply): Patient Departure All imaging exams completed and their final reports reviewed: No Studies - Discharge Plan Condition: Stable Disposition: HOME Prescriptions: Cephalexin CAP* [Keflex CAP*] 500 mg PO BID 7 Days #14 cap Patient Education Materials: Urinary Tract Infection in Women (ED) Referrals: López Matt MD [Primary Care Provider] - Additional Instructions: FOLLOW UP IF NOT BETTER IN 5-7 DAYS OR SOONER IF WORSE. - Billing Disposition and Condition Condition: STABLE Disposition: Home
== END 2018-08-07 10:20 | disposition home or self-care (01) ==
LOC: UCCORT 09:18
DX: N39.0 Urinary tract infection, site not specified (principal); Z86.73 Personal history of transient ischemic attack (TIA), and cerebral infarction without residual deficits; Z87.891 Personal history of nicotine dependence
CPT/HCPCS: 81003; 87086; 99212; G0463

== ENCOUNTER 2018-11-15 09:26 | Day surgery (SDC) | payer MEDICARE ==
--- NOTE | 2018-11-09 16:27 | HP ---
PREOPERATIVE HISTORY AND PHYSICAL: DATE OF SURGERY/ADMISSION: 11/15/18 [facility] DATE OF OFFICE VISIT/ENCOUNTER: 10/26/18 ATTENDING SURGEON: Yadira Plaza MD * (DICTATED BY KADE CASTELLANOS) PROCEDURE: Left wrist de Quervain's release. HISTORY OF PRESENT ILLNESS: This is a 58-year-old female with history of myocardial infarction x2, stroke, and seizures. She is complaining of pain along the radial aspect of her left wrist. This has been ongoing since February 2018. Crocheting makes it worse. She has marked tenderness to palpation along the first dorsal compartment. She has failed conservative treatment including wrist brace and cortisone injection. She would like to proceed with more definitive treatment in the form of a surgical release. We will obtain clearance from her primary care physician, Dr. Matt; her privacy officer, Dr. Macias; and her neurologist, Dr. Bonilla, prior to proceeding with surgery. PAST MEDICAL HISTORY: 1. Stroke. 2. Arthritis. 3. GERD. 4. Coronary artery disease. 5. Myocardial infarction x2 in 2005 and 2013. 6. Hypercholesterolemia. 7. History of seizure, last seizure was approximately 6 months ago. PAST SURGICAL HISTORY: 1. Hernia repair. 2. x4. 3. Bilateral carpal tunnel release. 4. Left finger trigger release. CURRENT MEDICATIONS: 1. Aspirin 81 mg daily. 2. Calcium plus D3 600/800 mg/unit twice a day. 3. Coenzyme Q10, 100 mg daily. 4. Digoxin 250 mcg daily. 5. Lansoprazole 30 mg daily. 6. Lescol XL 80 mg daily. 7. Metoprolol succinate ER 25 mg half tab daily. 8. [place]-3 1000 mg daily. 9. Topiramate 50 mg q.a.m. 10. Topiramate 100 mg every morning and 2 at night. 11. Zetia 10 mg daily. ALLERGIES: ASPARTAME, CRESTOR, DILANTIN, DYE for heart catheterization, KEPPRA , LACTOSE, LATEX, LIPITOR, NIASPAN, NITROGLYCERIN, OXCARBAZEPINE, PLAVIX, TOPROL -XL, VYTORIN. FAMILY MEDICAL HISTORY: Diabetes, heart disease, and cancer. SOCIAL HISTORY: The patient is disabled. She is a former smoker. She quit in 2005; prior to that, she smoked a pack per day for 32 years. She denies recreational drug use and does not drink alcohol. REVIEW OF SYSTEMS: Negative for general, cephalic, cardiovascular, respiratory , GI, , other musculoskeletal, integumentary, endocrine, neurologic, and hematologic symptoms. Infectious disease: Negative for MRSA, hepatitis C, HIV. PHYSICAL EXAMINATION GENERAL: Well-developed, well-nourished 58-year-old female, in no acute distress. VITAL SIGNS: Height 4 feet 8 inches, weight 123 pounds. Pulse rate 64, blood pressure 104/64. HEENT: Normocephalic, atraumatic. Pupils are equal, round, and reactive to light and accommodation. Extraocular movements are intact. Throat is clear. NECK: Supple. No palpable lymph nodes. PULMONARY: Lungs are clear to auscultation bilaterally. No wheezes, rales, or rhonchi. CARDIOVASCULAR: Regular rate and rhythm. S1 and S2. No murmurs, rubs, or gallops. No edema. ABDOMEN: Positive bowel sounds. Soft and nontender. NEUROLOGIC: Alert and oriented x3. Cranial nerves II through XII are intact. Sensation is intact to light touch. MUSCULOSKELETAL: On exam of her left wrist, there is no visible swelling. She has tenderness to palpation of the radial styloid. Positive Nemo's test. Pain with ulnar deviation. She has good motion in the wrist with flexion and extension, and she can make a tightly closed fist. Skin is intact. Neurovascular function is intact. IMPRESSION: Left wrist de Quervain's tenosynovitis. PLAN: The patient is scheduled to undergo left wrist de Quervain's release with Dr. Plaza on 11/15/18. She will return to the office 10 days postop for followup and suture removal. Prescription for Tylenol with Codeine was e- scribed to the patient's pharmacy for postoperative pain management. We will obtain clearance from her primary care doctor, Dr. Matt; her privacy officer, Dr. Macias; and her neurologist, Dr. Bonilla, prior to proceeding with surgery. KADE CASTELLANOS [id number]/[facility] #: [id number] [place]
[~2018-11-15 09:26] MED LIST: Buffered Lidocaine 1% SYRIN* 1 ML/SYRINGE INTRADERM ONE; NS 0.9% 1000 ML** 1,000 ML IV SCH
[2018-11-15] MEDS ORDERED: Lidocaine 1% INJ* 10 MG/ML 30 ML SDV ONE (10:48)
[2018-11-15] MEDS ORDERED: fentaNYL* 50 MCG/ML 2 ML VIAL (100 MCG VIAL) ONE (11:09)
[2018-11-15] MEDS ORDERED: Midazolam* 1 MG/ML 2 ML VIAL (2 MG) ONE (11:09)
[2018-11-15] MEDS ORDERED: Propofol* 10 MG/ML 20 ML BTL ONE (11:10)
[2018-11-15] MEDS ORDERED: Lidocaine 2% PF * 5 ML VIAL ONE (11:10)
[2018-11-15] MEDS ORDERED: DiMENhydriNATE IV* 50 MG/ML VIAL IV PUSH PRN (11:38)
[2018-11-15] MEDS ORDERED: Acetaminophen TAB* 325 MG PO PRN (11:38)
[2018-11-15] MEDS ORDERED: Naloxone* 0.4 MG/ML 1 ML VIAL IV PRN (11:38)
[2018-11-15] MEDS ORDERED: Ondansetron INJ* 2 MG/ML VIAL IV PRN (11:38)
[2018-11-15 12:17] VITALS: BP 111/74
--- NOTE | 2018-11-15 21:14 | OP ---
DATE OF OPERATION: 11/15/18 [facility] DATE OF : 56 SURGEON: Yadira Plaza MD ARCHITECTURE DEPARTMENT CHAIR: KADE Sandra ANESTHESIA: Local MAC. PRE-OP DIAGNOSIS: Left de Quervain's. POST-OP DIAGNOSIS: Left de Quervain's. OPERATIVE PROCEDURE: Left de Quervain's release. ESTIMATED BLOOD LOSS: Zero. TOURNIQUET TIME: Approximately 10 minutes. INDICATIONS FOR PROCEDURE: Ludy is a 58-year-old female, who has pain at the radial aspect of her left wrist. She has failed conservative treatment for de Quervain's tenosynovitis including cortisone injection. She presents for de Quervain's release, left wrist. DESCRIPTION OF PROCEDURE: The patient was brought to the operating room, was given a sedation anesthetic and a local infiltration of 10 cc of 1% plain lidocaine at the left radial styloid. The skin of her left upper extremity was prepped and draped in the usual sterile fashion. The hand and forearm were exsanguinated and the tourniquet elevated to 250 mmHg. A longitudinal incision was made centered at the tip of the radial styloid and we dissected bluntly through the subcutaneous tissue down to the first dorsal compartment. Branches of the radial sensory nerve were located and then were retracted by the language assistant, Darcy Davis. A longitudinal incision was made in the first compartment sheath, and the APL tendon was completely released. The EPB tendon was in a separate sheath and was also completely released. There was not an abundant amount of tenosynovitis. The wound was irrigated and skin edges were reapproximated with 4-0 nylon suture. The wound was dressed with Xeroform, 4x4, Webril, and an Bhavin wrap. The patient tolerated the procedure well and was brought to the recovery room in good condition. [id number]/[facility] #: [id number] [facility] HOSPITALSharlene
== END 2018-11-15 12:17 | disposition home or self-care (01) ==
LOC: OREAST 09:26
PROVIDERS: ATTEND Orthopaedic Surgery
DX: M65.4 Radial styloid tenosynovitis [de Quervain] (principal); I25.10 Atherosclerotic heart disease of native coronary artery without angina pectoris; I25.2 Old myocardial infarction; M19.90 Unspecified osteoarthritis, unspecified site; K21.9 Gastro-esophageal reflux disease without esophagitis; E78.00 Pure hypercholesterolemia, unspecified; G40.89 Other seizures; Z87.891 Personal history of nicotine dependence
CPT/HCPCS: J2250; J2704; J3010

== ENCOUNTER 2020-08-19 07:52 | Observation (INO) ==
[2020-08-19 08:35] LABS: ABS Basophils 0.1 10^3/ul (0-0.2); ABS Eosinophils 0.1 10^3/ul (0-0.6); ABS Lymphocytes 2.4 10^3/ul (1.0-4.8); ABS Monocytes 0.8 10^3/ul (0-0.8); Hematocrit 44 % (35-47); Hemoglobin 14.6 g/dL (12.0-16.0); Mean Corpuscular HGB Conc 34 g/dL (31-36); Mean Corpuscular Hemoglobin 31 pg (27-31); Mean Corpuscular Volume 92 fL (80-97); Mean Platelet Volume 8.7 fL (7.4-10.4); Platelet Count 216 10^3/uL (150-450); Red Blood Count 4.75 10^6 /uL (3.70-4.87); Red Cell Distribution Width 13 % (10-15); White Blood Count 10.3 10^3/uL (3.5-10.8)
[2020-08-19 08:41] LABS: INR 1.03 (0.86-1.15)
[2020-08-19 08:57] LABS: Albumin/Globulin Ratio 1.6 (1-3); Calcium 8.6 mg/dL (8.6-10.3); EGFR African American 79.8 (>60); Globulin 2.5 g/dL (2-4); Potassium 3.8 mmol/L (3.5-5.0); Total Bilirubin 0.4 mg/dL (0.2-1.0); Total Protein 6.5 g/dL (6.4-8.9)
[2020-08-19] MEDS ORDERED: Al Hydrox/Mg Hydrox/Simet LIQ 30 ML UDC PO PRN (10:09)
[2020-08-19] MEDS ORDERED: Ondansetron 4 mg VIAL 2 MG/ML 2 ml VIAL IV PRN (10:09)
[2020-08-19 10:55] LABS: Magnesium 2.1 mg/dL (1.9-2.7)
[2020-08-20 06:01] LABS: HDL Cholesterol 35.5 mg/dL
[2020-08-20] MEDS ORDERED: Regadenoson 0.4 MG/5 ML SYRINGE ONE ×2 (07:57→13:15)
[2020-08-20] MEDS ORDERED: Coenzyme Q10 CAP (NF) ** ENTER STREGNTH IN LABEL DIRECTIONS PO SCH (09:00)
[2020-08-20] MEDS ORDERED: Aspirin EC 81 mg TAB.EC (enteric coated) PO SCH (09:00)
[2020-08-20] MEDS ORDERED: Lorazepam PYXIS KEY ONE (12:11)
[2020-08-20] MEDS ORDERED: LORazepam 2 mg VIAL 1 ml ONE (12:12)
[2020-08-20 15:57] VITALS: BP 121/63
== END 2020-08-20 16:30 | disposition home or self-care (01) ==
LOC: MEDTELE 07:52 → ED 07:52 → MEDTELE 13:01
PROVIDERS: ADMIT Pediatrics; ATTEND Pediatrics

== ENCOUNTER 2023-05-27 15:16 | Observation (INO) ==
[2023-05-27 15:54] LABS: ABS Basophils 0.1 10^3/uL (0.0-0.1); ABS Eosinophils 0.2 10^3/uL (0.0-0.5); ABS Lymphocytes 2.9 10^3/uL (1.0-4.8); ABS Monocytes 0.9 10^3/uL (0.0-0.9); ABS Neutrophils 4.3 10^3/uL (1.5-7.6); ABS Nucleated RBC 0.02 10^3/ul; Eosinophil % 2.2 %; Hematocrit 41.1 % (35-45); Lymphocyte % 34.6 %; Mean Corpuscular Hemoglobin 30.8 pg (27-33); Mean Corpuscular Volume 90.4 fL (80-97); Mean Platelet Volume 8.5 fL (7.5-11.2); Nucleated Red Blood Cells % 0.2 %/100WBC (0.0-0.8); Platelet Count 243 10^3/uL (150-450); Red Blood Count 4.55 10^6/uL (3.63-4.92); Red Cell Distribution Width 13.2 % (12-17); White Blood Count 8.3 10^3/uL (3.8-11.8)
[2023-05-27 16:16] LABS: INR 1.08 (0.83-1.13)
[2023-05-27 16:52] LABS: Albumin/Globulin Ratio 1.8 (1-3); Calcium 8.8 mg/dL (8.6-10.3); Creatinine, Serum 1.08 mg/dL (0.51-0.95); Globulin 2.2 g/dL (2-4); Total Bilirubin 0.3 mg/dL (0.2-1.0); Total Protein 6.2 g/dL (6.4-8.9)
[2023-05-27 17:15] LABS: High Sensitivity Troponin 1 Hr 4 pg/mL (<15)
[2023-05-27] MEDS: Enoxaparin 40 MG/0.4 ML SYR SUBCUT SCH (21:04)
[2023-05-27] MEDS: ICOSAPENT ETHYL 0.5 GM PO SCH (21:04)
[2023-05-28 03:08] LABS: High Sensitivity Troponin 1 Hr 5 pg/mL (<15)
[2023-05-28] MEDS: Aspirin EC 81 mg TAB.EC (enteric coated) PO SCH (08:02)
[2023-05-28] MEDS ORDERED: Regadenoson 0.4 MG/5 ML SYRINGE ONE (08:38)
[2023-05-28] MEDS ORDERED: LORazepam 2 mg VIAL 1 ml ONE (10:36)
[2023-05-28 14:50] VITALS: BP 138/63
[2023-05-28] MEDS ORDERED: Potassium Chlor 20 meq TAB.ER PO SCH (17:30)
== END 2023-05-28 16:00 | disposition home or self-care (01) ==
LOC: EDHOLD 15:16 → ED 15:16 → SUATTDRO 18:16 → MEDTELE 21:17
PROVIDERS: ADMIT Student in an Organized Health Care Education/Training Program; ATTEND Hospitalist